=== PATIENT | female | born 1955 | race Caucasian/White ===

== ENCOUNTER → 2020-10-12 07:17 | Outpatient (CLI) | payer MEDICARE, SELFPAY ==
[2020-10-12 10:22] LABS: Absolute Lymphocyte Count 1.55 X10^3/uL (0.83-4.51); Absolute Neutrophil Count 2.3 X10^3/uL (2.0-7.7); Basophil# 0.04 X10^3/uL; Basophil% 0.9 % (0-1); Eosinophil# 0.08 X10^3/uL; Eosinophils% 1.8 % (0-5); Hemoglobin 14.1 g/dL (12.0-15.0); Lymphocyte # 1.55 X10^3/ul (0.83-4.51); Lymphocyte % 34.2 % (19-41); Mean Corp Hgb Conc 32.8 g/dL (32-36); Mean Corpuscular Hgb 30.7 pg (27.0-32.0); Mean Corpuscular Volume 93.5 fL (81-99); Monocyte# 0.59 X10^3/uL; NRBC Flagged by Analyzer 0 % (0-5); Neutrophil # 2.26 X10^3/uL (2.7-7.7); Neutrophil % 49.9 % (47-70); Platelet Count 220 K/mm3 (150-450); RBC Distribution Width CV 12.1 % (11.6-14.6); White Blood Count 4.5 K/mm3 (4.4-11.0)
[2020-10-12 10:33] LABS: Color, Urine Yellow (Yellow); Glucose, Dipstick Normal (Normal); Ketone-Dipstick Negative (Negative); Leukocyte Esterase-Dipstick 100 /ul (Negative); Nitrite-Dipstick Negative (Negative); Occult Blood-Urine 25 /ul (Negative); Protein-Dipstick Negative (Negative); Urine Bilirubin Dipstick Negative (Negative); Urine Clarity Clear (Clear); Urine Urobilinogen Normal (Normal)
[2020-10-12 10:49] LABS: ALB/GLOB Ratio 1.1 RATIO (0.9-2.4); AST(SGOT) 20 U/L (15-37); Alanine Aminotransfer ALT/SGPT 20 U/L (13-56); Albumin, Serum 3.8 g/dL (3.2-5.0); Alkaline Phosphatase 110 U/L (45-117); Anion Gap 6 (5-15); BUN 12 mg/dL (7-18); BUN/Creat Ratio 14.5 RATIO (10-20); Calcium,Total 8.6 mg/dL (8.5-10.1); Chloride 109 mmol/L (98-107); Cholesterol 193 mg/dL (200); Creatinine, Serum 0.83 mg/dL (0.55-1.02); EST Glomerular Filtration Rate 73 mL/min (>60); Est Glom Filt Rate - Afr Amer 89 mL/min (>60); Globulin 3.6 g/dL (2.2-4.2); Glucose 95 mg/dL (74-106); High Density Lipoprotein 50 mg/dL; Potassium 3.6 mmol/L (3.5-5.1); Protein, Total 7.4 g/dL (6.4-8.2); Sodium Level 140 mmol/L (136-145); Thyroid Stim Hormone (TSH) 2.15 uIU/mL (0.358-3.74); Triglycerides 89 mg/dL; Very Low Density Lipoprotein 18 mg/dL (5-40)
== END ==
PROVIDERS: PCP Family Medicine
DX: I10 Essential (primary) hypertension (principal); R31.21 Asymptomatic microscopic hematuria; R53.83 Other fatigue; Z13.89 Encounter for screening for other disorder
CPT/HCPCS: 36415; 80053; 80061; 81002; 84443; 85025

== ENCOUNTER → 2020-12-23 08:07 | Outpatient (CLI) | payer MEDICARE, SELFPAY ==
[2020-12-23 08:10] LABS: Mucous, Urine 0 SEEN /hpf (<or=2+); Red Blood Cells-Urine 0 SEEN /hpf (0-5)
[2020-12-23 12:10] LABS: Color, Urine Yellow (Yellow); Glucose, Dipstick Normal (Normal); Ketone-Dipstick Negative (Negative); Leukocyte Esterase-Dipstick 25 /ul (Negative); Nitrite-Dipstick Negative (Negative); Occult Blood-Urine 10 /ul (Negative); Protein-Dipstick Negative (Negative); Specific Gravity, Urine 1.015 (1.002-1.030); Urine Bilirubin Dipstick Negative (Negative); Urine Clarity Clear (Clear); Urine Urobilinogen Normal (Normal)
[2020-12-23 12:19] LABS: Bacteria RARE /hpf (None Seen); Squamous Epithelial Cells - UA 0-5 SEEN /hpf (5-10); White Blood Cells 0-5 SEEN /hpf (0-5)
== END ==
PROVIDERS: PCP Internal Medicine; Visit Provider Internal Medicine
DX: R31.9 Hematuria, unspecified (principal)
CPT/HCPCS: 81001

== ENCOUNTER → 2022-01-06 | Outpatient (CLI) | payer MEDICARE, SELFPAY ==
[2022-01-06 12:19] LABS: Absolute Lymphocyte Count 2.13 X10^3/uL (0.83-4.51); Absolute Neutrophil Count 2.5 X10^3/uL (2.0-7.7); Basophil# 0.05 X10^3/uL; Basophil% 0.9 % (0-1); Eosinophil# 0.14 X10^3/uL; Eosinophils% 2.6 % (0-5); Hematocrit 42.4 % (37-47); Lymphocyte # 2.13 X10^3/ul (0.83-4.51); Lymphocyte % 39.3 % (19-41); Mean Corpuscular Hgb 31.3 pg (27.0-32.0); Mean Corpuscular Volume 94.6 fL (81-99); Mean Platelet Vol. 10.7 fl (6.2-12.0); Monocyte# 0.58 X10^3/uL; Monocyte% 10.7 % (0-10); NRBC Flagged by Analyzer 0 % (0-5); Neutrophil % 46.1 % (47-70); Platelet Count 229 K/mm3 (150-450); RBC Distribution Width CV 12.3 % (11.6-14.6); RBC Distribution Width SD 42.7 fl (35.1-43.9); Red Blood Count 4.48 M/mm3 (4.2-5.4); White Blood Count 5.4 K/mm3 (4.4-11.0)
[2022-01-06 12:44] LABS: Vitamin B12 796 pg/mL (211-911); Vitamin D,25 Hydroxy 52.8 ng/mL
[2022-01-06 12:55] LABS: ALB/GLOB Ratio 0.9 RATIO (0.9-2.4); AST(SGOT) 19 U/L (15-37); Alanine Aminotransfer ALT/SGPT 25 U/L (13-56); Albumin, Serum 3.7 g/dL (3.2-5.0); Alkaline Phosphatase 101 U/L (45-117); Anion Gap 6 (5-15); BUN 15 mg/dL (7-18); BUN/Creat Ratio 19.9 RATIO (10-20); Calcium,Total 8.8 mg/dL (8.5-10.1); Chloride 108 mmol/L (98-107); Cholesterol 210 mg/dL (200); Creatinine, Serum 0.75 mg/dL (0.55-1.02); EST Glomerular Filtration Rate 82 mL/min (>60); Est Glom Filt Rate - Afr Amer 99 mL/min (>60); Glucose 89 mg/dL (74-106); High Density Lipoprotein 51 mg/dL; Potassium 3.8 mmol/L (3.5-5.1); Protein, Total 7.7 g/dL (6.4-8.2); Sodium Level 141 mmol/L (136-145); Thyroid Stim Hormone (TSH) 1.72 uIU/mL (0.358-3.74); Triglycerides 94 mg/dL; Very Low Density Lipoprotein 19 mg/dL (5-40)
== END | disposition home or self-care (01) ==
LOC: MTLAB 10:16
PROVIDERS: PCP Internal Medicine; Referring Provider Internal Medicine; Visit Provider Internal Medicine
DX: R31.9 Hematuria, unspecified (principal); R53.83 Other fatigue; E55.9 Vitamin D deficiency, unspecified; E78.5 Hyperlipidemia, unspecified
CPT/HCPCS: 36415; 80053; 80061; 82306; 82607; 84443; 85025

== ENCOUNTER → 2023-01-27 | Outpatient (CLI) | payer MEDICARE, SELFPAY ==
[2023-01-27 10:10] LABS: Absolute Lymphocyte Count 1.79 X10^3/uL (0.83-4.51); Absolute Neutrophil Count 2.2 X10^3/uL (2.0-7.7); Basophil# 0.04 X10^3/uL; Basophil% 0.8 % (0-1); Eosinophil# 0.13 X10^3/uL; Eosinophils% 2.7 % (0-5); Hematocrit 42.6 % (37-47); Hemoglobin 13.7 g/dL (12.0-15.0); Lymphocyte # 1.79 X10^3/ul (0.83-4.51); Lymphocyte % 37.4 % (19-41); Mean Corp Hgb Conc 32.2 g/dL (32-36); Mean Corpuscular Hgb 30.5 pg (27.0-32.0); Mean Corpuscular Volume 94.9 fL (81-99); Mean Platelet Vol. 10.7 fl (6.2-12.0); Monocyte# 0.62 X10^3/uL; NRBC Flagged by Analyzer 0 % (0-5); Neutrophil # 2.19 X10^3/uL (2.7-7.7); Neutrophil % 45.9 % (47-70); Platelet Count 206 K/mm3 (150-450); RBC Distribution Width CV 12.9 % (11.6-14.6); RBC Distribution Width SD 45.4 fl (35.1-43.9); Red Blood Count 4.49 M/mm3 (4.2-5.4); White Blood Count 4.8 K/mm3 (4.4-11.0)
[2023-01-27 10:37] LABS: Vitamin B12 450 pg/mL (211-911); Vitamin D,25 Hydroxy 47.6 ng/mL
[2023-01-27 10:40] LABS: AST(SGOT) 22 U/L (15-37); Alanine Aminotransfer ALT/SGPT 24 U/L (13-56); Albumin, Serum 3.6 g/dL (3.2-5.0); Alkaline Phosphatase 96 U/L (45-117); Anion Gap 8 (5-15); BUN 13 mg/dL (7-18); Calcium,Total 8.7 mg/dL (8.5-10.1); Chloride 111 mmol/L (98-107); Cholesterol 196 mg/dL (200); Creatinine, Serum 0.81 mg/dL (0.55-1.02); EST Glomerular Filtration Rate 74 mL/min (>60); Est Glom Filt Rate - Afr Amer 90 mL/min (>60); Globulin 3.6 g/dL (2.2-4.2); Glucose 107 mg/dL (74-106); High Density Lipoprotein 46 mg/dL; Potassium 4.1 mmol/L (3.5-5.1); Protein, Total 7.2 g/dL (6.4-8.2); Sodium Level 143 mmol/L (136-145); Thyroid Stim Hormone (TSH) 1.83 uIU/mL (0.358-3.74); Triglycerides 103 mg/dL; Very Low Density Lipoprotein 21 mg/dL (5-40)
== END | disposition home or self-care (01) ==
LOC: MTLAB 07:13
PROVIDERS: PCP Internal Medicine; Referring Provider Internal Medicine; Visit Provider Internal Medicine
DX: Z00.00 Encounter for general adult medical examination without abnormal findings (principal); K21.9 Gastro-esophageal reflux disease without esophagitis; E55.9 Vitamin D deficiency, unspecified; E78.5 Hyperlipidemia, unspecified
CPT/HCPCS: 36415; 80053; 80061; 82306; 82607; 84443; 85025

== ENCOUNTER → 2024-02-02 | Outpatient (CLI) | payer MEDICARE, SELFPAY ==
[2024-02-02 07:09] LABS: Absolute Lymphocyte Count 1.81 X10^3/uL (0.83-4.51); Absolute Neutrophil Count 2.8 X10^3/uL (2.0-7.7); Basophil# 0.04 X10^3/uL; Basophil% 0.8 % (0-1); Eosinophils% 3.8 % (0-5); Hematocrit 42.7 % (37-47); Hemoglobin 13.6 g/dL (12.0-15.0); Lymphocyte # 1.81 X10^3/ul (0.83-4.51); Lymphocyte % 34.3 % (19-41); Mean Corp Hgb Conc 31.9 g/dL (32-36); Mean Corpuscular Hgb 30.1 pg (27.0-32.0); Mean Corpuscular Volume 94.5 fL (81-99); Monocyte# 0.45 X10^3/uL; Monocyte% 8.5 % (0-10); NRBC Flagged by Analyzer 0 % (0-5); Neutrophil # 2.76 X10^3/uL (2.7-7.7); Neutrophil % 52.2 % (47-70); Platelet Count 220 K/mm3 (150-450); RBC Distribution Width CV 13.1 % (11.6-14.6); RBC Distribution Width SD 45.5 fl (35.1-43.9); Red Blood Count 4.52 M/mm3 (4.2-5.4); White Blood Count 5.3 K/mm3 (4.4-11.0)
[2024-02-02 07:44] LABS: AST(SGOT) 14 U/L (15-37); Alanine Aminotransfer ALT/SGPT 20 U/L (13-56); Albumin, Serum 3.7 g/dL (3.2-5.0); Alkaline Phosphatase 115 U/L (45-117); Anion Gap 6 (5-15); BUN 12 mg/dL (7-18); BUN/Creat Ratio 13.2 RATIO (10-20); Calcium,Total 8.7 mg/dL (8.5-10.1); Chloride 112 mmol/L (98-107); Cholesterol 179 mg/dL (200); Creatinine, Serum 0.91 mg/dL (0.55-1.02); EST Glomerular Filtration Rate 65 mL/min (>60); Est Glom Filt Rate - Afr Amer 79 mL/min (>60); Globulin 3.7 g/dL (2.2-4.2); Glucose 112 mg/dL (74-106); High Density Lipoprotein 55 mg/dL; Potassium 3.9 mmol/L (3.5-5.1); Protein, Total 7.4 g/dL (6.4-8.2); Sodium Level 143 mmol/L (136-145); Triglycerides 82 mg/dL; Very Low Density Lipoprotein 16 mg/dL (5-40)
== END | disposition home or self-care (01) ==
LOC: LAB 06:52
PROVIDERS: PCP Internal Medicine; Referring Provider Internal Medicine; Visit Provider Internal Medicine
DX: K21.9 Gastro-esophageal reflux disease without esophagitis (principal); M25.562 Pain in left knee; E78.5 Hyperlipidemia, unspecified; Z13.220 Encounter for screening for lipoid disorders
CPT/HCPCS: 36415; 80053; 80061; 85025

== ENCOUNTER → 2024-08-21 | Outpatient (CLI) | payer MEDICARE, SELFPAY ==
--- NOTE | 2024-08-21 15:31 | RAD_ITS ---
PROCEDURE: HAND MIN 3 VIEWS 08/21/2024 REASON FOR EXAM: PAIN IN HAND, FINGER TECHNIQUE: 3 view(s) of the right hand COMPARISON: None available FINDINGS: No fracture or dislocation. The joint spaces appear within limits. Appearance of soft tissue swelling about the 5th proximal interphalangeal joint, clinically correlate. RAD/Hand Min 3 Views IMPRESSION: No fracture or dislocation. The joint spaces appear within limits. Appearance of soft tissue swelling about the 5th proximal interphalangeal joint , clinically correlate. Reading Location: [id number]
== END | disposition home or self-care (01) ==
LOC: MTRAD 15:29
PROVIDERS: PCP Internal Medicine; Referring Provider Chiropractor; Visit Provider Chiropractor
DX: M79.644 Pain in right finger(s) (principal)
CPT/HCPCS: 73130

== ENCOUNTER → 2025-02-13 | Outpatient (CLI) | payer MEDICARE, SELFPAY ==
--- OUTSIDE RECORDS SUMMARY | 2025-02-13 07:45 | XMS RPT_ITS | CCD ---
Author Organization [facility] Care Team Providers Care Commissioning Specialist Name Role Phone Dr. Rimma Perales Primary Care Provider Dr. Rimma Perales Attending Provider Unavailable Primary Care Provider Unavailnicole Perales MD, Dr. Shanks Primary Care Provider [phone] Thomas ALMANZAR, Dr. Loomis Attending Provider Thomas ALMANZAR, Dr. Loomis Referring Provider Rimma Perales Primary Care Unavailable Rimma Perales Attending Unavailable Rimma Perales Primary Care Unavailable Vladislav Guzman Attending Unavailable Vladislav Guzman Referring Unavailable Rimma Perales Primary Care Unavailable Rimma Perales Attending Unavailable Rimma Perales Referring Unavailable Allergies Allergy Classification Reported Allergen(s) Allergy Type Date of Onset Reaction(s) Facility (4 sources) Chocolate; Translations: [chocolate flavor] Propensity to adverse reactions 2 [facility] Comment on above: Chocolate (3 sources) Penicillins Propensity to adverse reactions 2 Rash [facility] (1 source) invert sugar Drug Allergy 4 [facility] (1 source) bee venom protein (honey bee) Allergy to substance 4 Other [facility] Comment on above: high BP, tired (1 source) Penicillins Drug allergy (disorder) 5 [facility] (1 source) inverted sugar Drug allergy (disorder) 5 [facility] (1 source) bee venom protein (honey bee) Drug allergy (disorder) 5 [facility] Medications Current Medications Medication Drug Class(es) Dates Sig (Normalized) Sig (Original) Bee Pollen 500 mg tablet (1 source) Start: 01-25-2024 Bee Pollen 500 mg tablet Active mg PO January 25, 2024 12:00am krill oil 500 mg oral capsule (1 source) Start: 01-25-2024 Krill Oil 500 mg capsule Active mg PO January 25, 2024 12:00am Multivitamin preparation (2 sources) Start: 01-03-2022 take 1 tablet by mouth once daily Multivitamin Active 1 TABLET PO DAILY January 03, 2022 12:00am Multivitamin tablet (1 source) Start: 01-03-2022 Multivitamin tablet Active 1 {tbl} PO DAILY January 03, 2022 12:00am Vitamin B Complex (B Complex-Vitamin B12) tablet (3 sources) Start: 12-22-2020 Vitamin B Complex (B Complex-Vitamin B12) tablet Active 1 {tbl} PO DAILY December 22, 2020 12:00am Start: 12-22-2020 take 1 tablet by sharif once daily Vitamin B Complex (B Complex-Vitamin B12) tablet Active 1 TABLET PO DAILY December 22, 2020 12:00am Completed/Discontinued Medications Medication Drug Class(es) Dates Sig (Normalized) Sig (Original) omeprazole 20 mg delayed release oral capsule (3 sources) Proton Pump Inhibitor Start: 12-22-2020 End: 01-03-2022 take 1 capsule by mouth once daily Omeprazole 20 mg capsule,delayed release(DR/EC) Discontinued 20 mg PO DAILY December 22, 2020 12:00am January 03, 2022 2:27pm Problems Active Problems Problem Classification Problem Date Documented Date Episodic/Chronic Esophageal disorders (5 sources) Gastroesophageal reflux disease; Translations: [Gastro-esophageal reflux disease without esophagitis] Onset: 02-03-2025 12-22-2020 Chronic Genitourinary symptoms and ill-defined conditions (3 sources) Blood in urine; Translations: [Hematuria, unspecified] 12-22-2020 Episodic Malaise and fatigue (6 sources) Fatigue; Translations: [Other fatigue] Onset: 02-03-2025 Episodic Nonspecific chest pain (2 sources) Chest pain, unspecified; Translations: [Chest pain, unspecified] Onset: 02-03-2025 Episodic Nutritional deficiencies (1 source) Vitamin D deficiency, unspecified; Translations: [Vitamin D deficiency, unspecified] Onset: 02-03-2025 Chronic Other nervous system disorders (1 source) Finding of sensation of upper limb; Translations: [Paresthesia of skin] Episodic Other nervous system disorders (1 source) Paresthesia of skin; Translations: [Disturbance of skin sensation] Episodic Other nervous system disorders (2 sources) Paresthesia of upper limb; Translations: [Paresthesia of skin] 01-03-2022 Episodic Other non-traumatic joint disorders (1 source) Pain in left knee; Translations: [Left knee pain] 01-25-2024 Episodic Past or Other Problems Problem Classification Problem Date Documented Da te Episodic/Chronic Other connective tissue disease (1 source) Pain in right finger(s); Translations: [Pain in right finger(s)] Onset: 08-27-2024 Episodic Results Test Name Value Interpretation Reference Range Facility MR/Vilma 02-03-2025 MR/VELMA.[facility] [address] [place] [address] OFFICE VISIT Date of Service: 02/03/25 MR#: [id number] Acct: [id number] Name: TERELL GREEN JEB Rep #: [id number] : 1955 Provider: Dr. Rimma valera MD Age/Sex: 69/F Location: [facility] Status: Signed Intake Vital Signs 01/25/24 09:34 02/03/25 13:28 Height 5 ft 4 in 5 ft 4 in Weight: 133 lb 4 oz BMI 22.8 BP 149/89 H Blood Pressure Location Rt brachial Position Sitting Respiration 16 Pulse 72 Pulse Source Monitor Temp 98.6 F Temp Source Temporal Pulse Oximetry (%) 97 Oxygen Delivery Method room air Intake Visit Reasons: Annual/Physical Chief Complaint: Bilateral hands and arms Joy Loader Required: No Accompanied by: Self Is patient in pain?: No Allergies bee venom protein (honey bee) (bee sting) Allergy (Severe, Verified 02/03/25 13:19) Other inverted sugar Allergy (Mild, Verified 02/03/25 13:19) Hives chocolate flavor Adverse Reaction (Severe, Verified 02/03/25 13:19) Hives Penicillins Adverse Reaction (Intermediate, Verified 02/03/25 13:19) Rash Medications ???Medication ???Instructions ???Recorded ???Confirmed ???Type vitamin B complex (B 1 tab PO DAILY 12/22/20 02/03/25 H istory Complex-Vitamin B12 tablet) multivitamin 1 tab PO DAILY 01/03/22 02/03/25 H istory bee pollen 500 mg tablet mg PO 01/25/24 02/03/25 History krill oil 500 mg capsule mg PO 01/25/24 02/03/25 History Have you fallen in the past year?: No PFSH Medical History (Updated 02/03/25 @ 15:[address] Rimma Perales MD) Carpal tunnel syndrome Chest pain Left knee pain Surgical History History of appendectomy Family History Mother CVA (cerebral vascular accident) Heart disease Hypertension Myocardial infarction Social History Smoking Status: Never smoker alcohol intake: never substance use type: does not use what type of physical activity do you participate in: walking frequency: daily HPI HPI Chief Complaint: Bilateral hands and arms Details: TERELL GREEN, is a 69 F who presents to the office today for annual follow-up. 69-year-old female, who generally speaking has been pretty healthy. She states however over the last year or more, she has had some intermittent chest pain, chest pressure sensation. She had an issue when she was doing some cleaning of a window where she put a lot of extra pressure on the chest wall and then had several weeks of chest discomfort but that is not the predominant issue. She has had a sense of intermittent chest pressure, across the upper chest, however not necessarily always associated with activity but usually in the evenings. Has not awaken her from sleep. She has not had overt dyspnea on exertion. Energy level overall seemingly okay. She has some GERD in the past but again not the issue that she is describing here. She has also had bilateral hand tingling, somewhat affects the right forearm particular on the right side. Some discomfort into the neck that could be related with the hand issue. However over the last 6 to 8 months this hand numbness and tingling has gotten a lot worse, particularly the right. Its mostly less bothersome than the left. Self-admittedly does sleep on her arm/hand, with the hand either flexed or extended and wakes up with numbness and tingling but the numbness and tingling has been more constant through the daytime as of late. From a cardiac history standpoint, mother had aortic valve replacement, maternal grandmother had fluid around her heart, and maternal grandfather had bypass surgery. She has not smoked cigarettes. She does not have longstanding high blood pressure. She has had some elevation in lipids intermittently but has not been on primary prevention. Review of systems per chart. Physical exam. Vital signs on chart. PERRLA. Sclera are clear. TMs are unremarkable with normal light reflexes. Canals are unremarkable. Posterior pharynx is unremarkable. Good dentition. No cervical or supraclavicular lymph nodes enlarged or tender. No clear thyromegaly. No thyroid nodules readily palpable. Lungs are without wheeze, rhonchi, rales. No E/A changes are heard. Heart is regular. Not tachycardic. No clear murmur, rub, or gallop is identified. The abdomen is soft. Bowel sounds are present. Nontender nondistended abdomen. No clear palpable masses in the abdomen. No significant leg edema. Cranial nerve examination 2 through 12 are grossly unremarkable nonlateralizing. No obvious rashes. No obvious significant skin lesions are identified. Tinel and Phalen, borderline right. Normal deep tendon reflexes at the bicep, tricep, brachial bi (more content not included)... Normal [facility] Hand Min 3 Viewson Hand Min 3 Views [facility] Imaging Services [address] [place], [place] [id number] Hand Min 3 Views MR#: [id number] Acct: [id number] Name: TERELL GREEN JEB Rep #: [id number] : 1955 F 69 From: Maximiliano Servin MD PCP: Dr. Rimma Perales MD Status: [facility] Study: Hand Min 3 Views Date of Exam: 08/21/24 Exam# [id number] Ordering Dr: Vladislav Guzman MD PROCEDURE: HAND MIN 3 VIEWS 08/21/2024 REASON FOR EXAM: PAIN IN HAND, FINGER TECHNIQUE: 3 view(s) of the right hand COMPARISON: None available FINDINGS: No fracture or dislocation. The joint spaces appear within limits. Appearance of soft tissue swelling about the 5th proximal interphalangeal joint, clinically correlate. RAD/Hand Min 3 Views IMPRESSION: No fracture or dislocation. The joint spaces appear within limits. Appearance of soft tissue swelling about the 5th proximal interphalangeal joint, clinically correlate. Reading Location: [id number] CC: Dr. Rimma Perales MD; Dr. Vladislav Guzman MD Bill Peddler: Signed Normal [facility] 36on 03-26-2024 36 Mammogram reminder call [facility] Absolute lymphocyte countOrd ered By: Rimma Perales on 01-27-2023 Lymphocytes Auto (Unsp spec) [#/Vol] 1.79 10*3/uL 0.83-4.51 [facility] Basophil percentageOrdered B y: Rimma Perales on 01-27-2023 Basophils/100 WBC (Bld) 0.8 % 0-1 [facility] Bilirubin [Mass/Vol] 0.30 mg/dL 0.20-1.00 [facility] Comment on above: For patients on eltr ombopag therapy, use of Dimension [place] TBIL is not recommended. Chloride [Moles/Vol] 111 mmol/L 98-107 [facility] Cholesterol [Mass/Vol] 196 mg/dL <200 [facility] Comment on above: <200 mg/dL Desirable 200-240 mg/dL Borderline >240 mg/dL High Risk Eosinophils/100 WBC (Bld) 2.7 % 0-5 [facility] Glucose [Mass/Vol] 107 mg/dL 74-106 [facility] Comment on above: Fasting Glucose resu lt from 100 to 125 mg/dL suggests IMPAIRED HOMEOSTASIS per A.D.A. criteria. Neutrophils (Bld) [#/Vol] 2.2 10*3/uL 2.0-7.7 [facility] Neutrophils/100 WBC (Bld) 45.9 % 47-70 [facility] Potassium [Moles/Vol] 4.1 mmol/L 3.5-5.1 [facility] Protein [Mass/Vol] 7.2 g/dL 6.4-8.2 [facility] Sodium [Moles/Vol] 143 mmol/L 136-145 [facility] Triglyceride [Mass/Vol] 103 mg/dL <199 [facility] Comment on above: The drugs N-Acetylcy steine and Metamizole may falsely depress this assay.Serum Triglycerides Reference Interval Normal <150 mg/dL Borderline high 150 - 199 mg/dL High 200 - 499 mg/dL Very High > or = 500 mg/dL WBC (Bld) [#/Vol] 4.8 10*3/uL 4.4-11.0 [facility] Blood erythrocytes count (nu mber/volume)Ordered By: Rimma Perales on 01-27-2023 RBC (Bld) [#/Vol] 4.49 10*6/uL 4.2-5.4 [facility] Blood hemoglobin measurement (mass/volume)Ordered By: Rimma Perales on 01-27-2023 Hemoglobin (Bld) [Mass/Vol] 13.7 g/dL 12.0-15.0 [facility] Blood lymphocytes/100 leukoc ytesOrdered By: Rimma Perales on 01-27-2023 Lymphocytes/100 WBC (Bld) 37.4 % 19-41 [facility] Blood monocytes/100 leukocyt esOrdered By: Rimma Perales on 01-27-2023 Monocytes/100 WBC (Bld) 13.0 % 0-10 [facility] Blood platelet mean volumeOr dered By: Rimma Perales on 01-27-2023 Platelet mean volume (Bld) [Entitic vol] 10.7 fL 6.2-12.0 [facility] Determination of erythrocyte mean corpuscular volume (MCV)Ordered By: Rimma Perales on 01-27-2023 MCV (RBC) [Entitic vol] 94.9 fL 81-99 [facility] Hematocrit Auto (Bld) [Volum e fraction]Ordered By: Rimma Perales on 01-27-2023 Hematocrit (Bld) [Volume fraction] 42.6 % 37-47 [facility] Laboratory - Chemistry and C hemistry - challengeOrdered By: Rimma Perales on 01-27-2023 ALP [Catalytic activity/Vol] 96 U/L 45-117 [facility] ALT [Catalytic activity/Vol] 24 U/L 13-56 [facility] CO2 [Moles/Vol] 24.0 mmol/L 21.0-32.0 [facility] Cobalamin (Vitamin B12) [Mass/Vol] 450 pg/mL 211-911 [facility] Globulin (S) [Mass/Vol] 3.6 g/dL 2.2-4.2 [facility] Urea nitrogen/Creatinine [Mass ratio] 16.0 mg/mg 10-20 [facility] Laboratory - Hematology and Cell countsOrdered By: Rimma Perales on 01-27-2023 Erythrocyte distribution width (RBC) [Entitic vol] 45.4 fL 35.1-43.9 [facility] Erythrocyte distribution width (RBC) [Ratio] 12.9 % 11.6-14.6 [facility] Immature granulocytes/100 WBC (Bld) 0.200 % 0.0-0.9 [facility] Comment on above: IG% - Immature Granu locytes (promyelocytes, myelocytes and metamyelocytes) > 1% indicates that a LEFT SHIFT is Present. MCH (RBC) [Entitic mass] 30.5 pg 27.0-32.0 [facility] Nucleated RBC/100 WBC (Bld) [Ratio] 0 % 0-5 [facility] MCHC Auto (RBC) [Mass/Vol]Or dered By: Rimma Perales on 01-27-2023 MCHC (RBC) [Mass/Vol] 32.2 g/dL 32-36 [facility] No Panel InformationOrdered By: Rimma Perales on 01-27-2023 Estimated GFR (MDRD) Amer 90 mL/min >60 [facility] Comment on above: GFR Calc Estimated GFR (MDRD) Non-Af Amer 74 mL/min >60 [facility] Comment on above: Non- GFR Calc Thyroid Stimulating Hormone (TSH) 1.83 uIU/mL 0.358-3.74 [facility] Vitamin D 25-Hydroxy 47.6 ng/mL [facility] Comment on above: Vitamin D 25(OH) Sta tus Range Deficiency <20 ng/mL (50nmol/L) Insufficiency 20 - 30 ng/mL (50 - 75 nmol/L) Sufficiency 30 - 100 ng/mL (75 - 250 nmol/L) Toxicity >100 ng/mL (>250 nmol/L) Platelets bldOrdered By: Micki Perales on 01-27-2023 Platelets (Bld) [#/Vol] 206 10*3/uL 150-450 [facility] Serum or plasma albumin lucas urement (mass/volume)Ordered By: Rimma Perales on 01-27-2023 Albumin [Mass/Vol] 3.6 g/dL 3.2-5.0 [facility] Serum or plasma albumin/glob ulin mass ratioOrdered By: Rimma Perales on 01-27-2023 Albumin/Globulin [Mass ratio] 1.0 {ratio} 0.9-2.4 [facility] Serum or plasma calcium lucas urement (mass/volume)Ordered By: Rimma Perales on 01-27-2023 Calcium [Mass/Vol] 8.7 mg/dL 8.5-10.1 [facility] Serum or plasma cholesterol in HDL measurement (mass/volume)Ordered By: Rimma Perales on 01-27-2023 Cholesterol in HDL [Mass/Vol] 46 mg/dL >40 [facility] Comment on above: The drugs N-Acetylcy steine and Metamizole may falsely depress this assay. Reference Range HDL <40 mg/dL Low HDL Cholesterol HDL >or= 60 mg/dL High HDL Cholesterol Serum or plasma cholesterol in VLDL measurement (mass/volume)Ordered By: Rimma Perales on 01-27-2023 Cholesterol in VLDL [Mass/Vol] 21 mg/dL 5-40 [facility] Serum or plasma creatinine m easurement (mass/volume)Ordered By: Rimma Perales on 01-27-2023 Creatinine [Mass/Vol] 0.81 mg/dL 0.55-1.02 [facility] Comment on above: The validity of the calculated GFR & GFRAA in patients over 70 years has not been determined. Clinical correlation is essential. Serum or plasma low density lipoprotein (LDL) cholesterol measurement (mass/volume)Ordered By: Rimma Perales on 01-27-2023 Cholesterol in LDL [Mass/Vol] 129 mg/dL 0-130 [facility] Serum or plasma urea nitroge n measurement (mass/volume)Ordered By: Rimma Perales on 01-27-2023 Urea nitrogen [Mass/Vol] 13 mg/dL 7-18 [facility] Thin prep Papanicolaou smear with manual screeningOrdered By: Rimma Perales on 01-27-2023 Thin prep Papanicolaou smear with manual screening 22 U/L 15-37 [facility] Thin prep Papanicolaou smear with manual screening 8 5-15 [facility] Absolute lymphocyte counton 01-06-2022 Lymphocytes Auto (Unsp spec) [#/Vol] 2.13 10*3/uL 0.83-4.51 [facility] Work Phone: Basophil percentageon 2021 Basophils/100 WBC (Bld) 0.9 % 0-1 [facility] Work Phone: Bilirubin [Mass/Vol] 0.40 mg/dL 0.20-1.00 [facility] Work Phone: Comment on above: For patients on eltr ombopag therapy, use of Dimension [place] TBIL is not recommended. Chloride [Moles/Vol] 108 mmol/L 98-107 [facility] Work Phone: Cholesterol [Mass/Vol] 210 mg/dL <200 [facility] Work Phone: Comment on above: <200 mg/dL Desirable 200-240 mg/dL Borderline >240 mg/dL High Risk Eosinophils/100 WBC (Bld) 2.6 % 0-5 [facility] Work Phone: Glucose [Mass/Vol] 89 mg/dL 74-106 [facility] Work Phone: Neutrophils (Bld) [#/Vol] 2.5 10*3/uL 2.0-7.7 [facility] Work Phone: Neutrophils/100 WBC (Bld) 46.1 % 47-70 [facility] Work Phone: Potassium [Moles/Vol] 3.8 mmol/L 3.5-5.1 [facility] Work Phone: Protein [Mass/Vol] 7.7 g/dL 6.4-8.2 [facility] Work Phone: Sodium [Moles/Vol] 141 mmol/L 136-145 [facility] Work Phone: Triglyceride [Mass/Vol] 94 mg/dL <199 [facility] Work Phone: Comment on above: The drugs N-Acetylcy steine and Metamizole may falsely depress this assay.Serum Triglycerides Reference Interval Normal <150 mg/dL Borderline high 150 - 199 mg/dL High 200 - 499 mg/dL Very High > or = 500 mg/dL WBC (Bld) [#/Vol] 5.4 10*3/uL 4.4-11.0 [facility] Work Phone: Blood erythrocytes count (nu mber/volume)on 01-06-2022 RBC (Bld) [#/Vol] 4.48 10*6/uL 4.2-5.4 [facility] Work Phone: Blood hemoglobin measurement (mass/volume)on 01-06-2022 Hemoglobin (Bld) [Mass/Vol] 14.0 g/dL 12.0-15.0 [facility] Work Phone: Blood lymphocytes/100 leukoc yteson 01-06-2022 Lymphocytes/100 WBC (Bld) 39.3 % 19-41 [facility] Work Phone: [phone] Blood monocytes/100 leukocyt eson 01-06-2022 Monocytes/100 WBC (Bld) 10.7 % 0-10 [facility] Work Phone: Blood platelet mean volumeon 01-06-2022 Platelet mean volume (Bld) [Entitic vol] 10.7 fL 6.2-12.0 [facility] Work Phone: Determination of erythrocyte mean corpuscular volume (MCV)on 01-06-2022 MCV (RBC) [Entitic vol] 94.6 fL 81-99 [facility] Work Phone: Hematocrit Auto (Bld) [Volum e fraction]on 01-06-2022 Hematocrit (Bld) [Volume fraction] 42.4 % 37-47 [facility] Work Phone: Laboratory - Chemistry and C hemistry - challengeon 01-06-2022 ALP [Catalytic activity/Vol] 101 U/L 45-117 [facility] Work Phone: ALT [Catalytic activity/Vol] 25 U/L 13-56 [facility] Work Phone: CO2 [Moles/Vol] 27.0 mmol/L 21.0-32.0 [facility] Work Phone: Cobalamin (Vitamin B12) [Mass/Vol] 796 pg/mL 211-911 [facility] Work Phone: Globulin (S) [Mass/Vol] 4.0 g/dL 2.2-4.2 [facility] Work Phone: Urea nitrogen/Creatinine [Mass ratio] 19.9 mg/mg 10-20 [facility] Work Phone: Laboratory - Hematology and Cell countson 01-06-2022 Erythrocyte distribution width (RBC) [Entitic vol] 42.7 fL 35.1-43.9 [facility] Work Phone: Erythrocyte distribution width (RBC) [Ratio] 12.3 % 11.6-14.6 [facility] Work Phone: Immature granulocytes/100 WBC (Bld) 0.400 % 0.0-0.9 [facility] Work Phone: Comment on above: IG% - Immature Granu locytes (promyelocytes, myelocytes and metamyelocytes) > 1% indicates that a LEFT SHIFT is Present. MCH (RBC) [Entitic mass] 31.3 pg 27.0-32.0 [facility] Work Phone: Nucleated RBC/100 WBC (Bld) [Ratio] 0 % 0-5 [facility] Work Phone: MCHC Auto (RBC) [Mass/Vol]on 01-06-2022 MCHC (RBC) [Mass/Vol] 33.0 g/dL 32-36 [facility] Work Phone: No Panel Informationon 01-06 Estimated GFR (MDRD) Amer 99 mL/min >60 [facility] Work Phone: Comment on above: GFR Calc Estimated GFR (MDRD) Non-Af Amer 82 mL/min >60 [facility] Work Phone: Comment on above: Non- GFR Calc Thyroid Stimulating Hormone (TSH) 1.72 uIU/mL 0.358-3.74 [facility] Work Phone: Vitamin D 25-Hydroxy 52.8 ng/mL [facility] Work Phone: Comment on above: Vitamin D 25(OH) Sta tus Range Deficiency <20 ng/mL (50nmol/L) Insufficiency 20 - 30 ng/mL (50 - 75 nmol/L) Sufficiency 30 - 100 ng/mL (75 - 250 nmol/L) Toxicity >100 ng/mL (>250 nmol/L) Platelets bldon 01-06-2022 Platelets (Bld) [#/Vol] 229 10*3/uL 150-450 [facility] Work Phone: Serum or plasma albumin lucas urement (mass/volume)on 01-06-2022 Albumin [Mass/Vol] 3.7 g/dL 3.2-5.0 [facility] Work Phone: Serum or plasma albumin/glob ulin mass ratioon 01-06-2022 Albumin/Globulin [Mass ratio] 0.9 {ratio} 0.9-2.4 [facility] Work Phone: Serum or plasma calcium lucas urement (mass/volume)on 01-06-2022 Calcium [Mass/Vol] 8.8 mg/dL 8.5-10.1 [facility] Work Phone: Serum or plasma cholesterol in HDL measurement (mass/volume)on 01-06-2022 Cholesterol in HDL [Mass/Vol] 51 mg/dL >40 [facility] Work Phone: Comment on above: The drugs N-Acetylcy steine and Metamizole may falsely depress this assay. Reference Range HDL <40 mg/dL Low HDL Cholesterol HDL >or= 60 mg/dL High HDL Cholesterol Serum or plasma cholesterol in VLDL measurement (mass/volume)on 01-06-2022 Cholesterol in VLDL [Mass/Vol] 19 mg/dL 5-40 [facility] Work Phone: Serum or plasma creatinine m easurement (mass/volume)on 01-06-2022 Creatinine [Mass/Vol] 0.75 mg/dL 0.55-1.02 [facility] Work Phone: Comment on above: The validity of the calculated GFR & GFRAA in patients over 70 years has not been determined. Clinical correlation is essential. Serum or plasma low density lipoprotein (LDL) cholesterol measurement (mass/volume)on 01-06-2022 Cholesterol in LDL [Mass/Vol] 140 mg/dL 0-130 [facility] Work Phone: Serum or plasma urea nitroge n measurement (mass/volume)on 01-06-2022 Urea nitrogen [Mass/Vol] 15 mg/dL 7-18 [facility] Work Phone: Thin prep Papanicolaou smear with manual screeningon 01-06-2022 Thin prep Papanicolaou smear with manual screening 19 U/L 15-37 [facility] Work Phone: Thin prep Papanicolaou smear with manual screening 6 5-15 [facility] Work Phone: CBC W/DIFFon 10-08-2018 BASO ABS 0.10 K/CU MM Normal 0-0.2 [facility] Comment on above: Performed By: #### L 200.32283 #### [facility] [address] [place] [address] Basophils/100 WBC (Bld) 0.9 % Normal 0-2 M [facility] Comment on above: Performed By: #### L 200.01180 #### [facility] [address] [place] [address] EOS ABS 0.10 K/CU MM Normal 0-0.5 [facility] Comment on above: Performed By: #### L 200.70929 #### [facility] [address] [place] [address] Eosinophils/100 WBC (Bld) 2.3 % Normal 0-5 [facility] Comment on above: Performed By: #### L 200.34939 #### [facility] [address] [place] [address] Erythrocyte distribution width (RBC) [Ratio] 12.6 % Normal 11-14.5 [facility] Comment on above: Performed By: #### L 200.92488 #### [facility] [address] [place] [address] Hematocrit (Bld) [Volume fraction] 44.0 % Normal 35.0-47.0 [facility] Comment on above: Performed By: #### L 200.92664 #### [facility] [address] [place] [address] Hemoglobin (Bld) [Mass/Vol] 14.1 g/dL Normal 11.5-15.5 [facility] Comment on above: Performed By: #### L 200.42415 #### [facility] [address] [place] [address] IMMATR GRAN ABS 0.00 K/CU MM Normal Less than 2 [facility] Comment on above: Performed By: #### L 200.35467 #### [facility] [address] [place] [address] IMMATURE GRAN % 0.2 % Normal Less than 2 [facility] Comment on above: Performed By: #### L 200.04227 #### [facility] [address] [place] [address] Lymphocytes (Bld) [#/Vol] 2.00 K/CU MM Normal 0.9-4.4 [facility] Comment on above: Performed By: #### L 200.12457 #### [facility] [address] [place] [address] Lymphocytes/100 WBC (Bld) 35.3 % Normal 20-40 [facility] Comment on above: Performed By: #### L 200.30169 #### [facility] [address] [place] [address] MCHC (RBC) [Mass/Vol] 32.0 g/dL Normal 32.0-36.0 [facility] Comment on above: Performed By: #### L 200.98154 #### [facility] [address] [place] [address] MCV (RBC) [Entitic vol] 93.8 fL Normal 80.0-99.0 [facility] Comment on above: Performed By: #### L 200.79920 #### [facility] [address] [place] [address] MONO ABS 0.50 K/CU MM Normal 0.1-1.1 [facility] Comment on above: Performed By: #### L 200.58009 #### [facility] [address] [place] [address] Monocytes/100 WBC (Bld) 8.0 % Normal 2-10 M [facility] Comment on above: Performed By: #### L 200.92699 #### [facility] [address] [place] [address] NEUTROPHIL ABS 3.10 K/CU MM Normal 2.0-8.3 [facility] Comment on above: Performed By: #### L 200.67568 #### [facility] [address] [place] [address] Neutrophils/100 WBC (Bld) 53.3 % Normal 45-75 [facility] Comment on above: Performed By: #### L 200.48197 #### [facility] [address] [place] [address] Nucleated RBC/100 WBC (Bld) [Ratio] 0.0 % Normal Less than 1 [facility] Comment on above: Performed By: #### L 200.43374 #### [facility] [address] [place] [address] 28589 Platelet mean volume (Bld) [Entitic vol] 10.5 fL Normal 9.4-12.4 [facility] Comment on above: Performed By: #### L 200.16718 #### [facility] [address] [place] [address]809 Platelets (Bld) [#/Vol] 213 K/CU MM Normal 150-450 [facility] Comment on above: Performed By: #### L 200.06207 #### [facility] [address] [place] [address] 70405 RBC (Bld) [#/Vol] 4.69 M/CU MM Normal 3.90-5.30 [facility] Comment on above: Performed By: #### L 200.87472 #### [facility] [address] [place] [address] 13003 WBC (Bld) [#/Vol] 5.7 K/CUMM Normal 4.5-11.0 [facility] Comment on above: Performed By: #### L 200.53128 #### [facility] [address] [place] [address] CMPon 10-08-2018 Albumin [Mass/Vol] 4.0 g/dL Normal 3.2-5.0 [facility] Comment on above: Performed By: #### L 500.49105, L500.74056, L500.35350 #### [facility] [address] [place] [address] Albumin/Globulin [Mass ratio] 1.2 {ratio} Normal 0.8-2.0 [facility] Comment on above: Performed By: #### L 500.74646, L500.40017, L500.07169 #### [facility] [address] [place] [address] ALK PHOS 108 U/L Normal 45-117 [facility] Comment on above: Performed By: #### L 500.54358, L500.42988, L500.32046 #### [facility] [address] [place] [address] ALT [Catalytic activity/Vol] 24 U/L Normal 13-61 [facility] Comment on above: Result Comment: RESU LTS MAY BE FALSELY DEPRESSED AFTER THE ADMINISTRATION OF SULFASALAZINE AND/OR SULFAPYRIDINE. Performed By: #### L 500.82173, L500.42987, L500.91847 #### [facility] [address] [place] [address] Anion gap [Moles/Vol] 7 mmol/L Normal 5-16 [facility] Comment on above: Performed By: #### L 500.11942, L500.49159, L500.84322 #### [facility] [address] [place], [place] [address] BILI TOTAL 0.5 MG/DL Normal 0.2-1.0 [facility] Comment on above: Performed By: #### L 500.59364, L500.67524, L500.40414 #### [facility] [address] [place] [address] Calcium [Mass/Vol] 8.5 mg/dL Normal 8.5-10.1 [facility] Comment on above: Performed By: #### L 500.02552, L500.03687, L500.00814 #### [facility] [address] [place] [address] 18705 Chloride [Moles/Vol] 109 mmol/L High 98-107 [facility] Comment on above: Performed By: #### L 500.46254, L500.92752, L500.44485 #### [facility] [address] [place] [address] 67593 CO2 [Moles/Vol] 25 mmol/L Normal 21-32 [facility] Comment on above: Performed By: #### L 500.29410, L500.84396, L500.28730 #### [facility] [address] [place] [address] Creatinine [Mass/Vol] 0.788 mg/dL Normal 0.510-0.950 [facility] Comment on above: Result Comment: Linette ents receiving either N-Acetylcysteine (NAC) or Metamizole prior to venipuncture, may have falsely depressed results. Performed By: #### L 500.71034, L500.82740, L500.75940 #### [facility] [address] [place] [address] 29203 Globulin (S) [Mass/Vol] 3.4 g/dL Normal 2.2-4.2 M [facility] Comment on above: Performed By: #### L 500.25944, L500.19237, L500.13479 #### [facility] [address] [place] [address] 52704 Glucose [Mass/Vol] 96 mg/dL Normal 70-100 [facility] Comment on above: Result Comment: 70-1 00- Normal Fasting; 100-125 Impaired Fasting; greater than 126 on more than one result- Diabetes. ADA guidelines. Results may be falsely elevated after the administration of Sulfapyridine. Results may be falsely depressed after the administration of Sulfasalazine. Performed By: #### L 500.69901, L500.88316, L500.79954 #### [facility] [address] [place] [address]28 Potassium [Moles/Vol] 4.0 mmol/L Normal 3.5-5.1 [facility] Comment on above: Performed By: #### L 500.09041, L500.89162, L500.22177 #### [facility] [address] [place] [address] 88438 Protein [Mass/Vol] 7.4 g/dL Normal 6.0-8.5 [facility] Comment on above: Performed By: #### L 500.64222, L500.99923, L500.62115 #### [facility] [address] [place] [address] 75882 SGOT (AST) 18 U/L Normal 8-34 [facility] Comment on above: Result Comment: RESU LTS MAY BE FALSELY DEPRESSED AFTER THE ADMINISTRATION OF SULFASALAZINE AND/OR SULFAPYRIDINE. Performed By: #### L 500.59937, L500.28013, L500.82045 #### [facility] [address] [place] [address] 27673 Sodium [Moles/Vol] 141 mmol/L Normal 136-145 [facility] Comment on above: Performed By: #### L 500.89086, L500.38148, L500.02254 #### [facility] [address] [place] [address] 76548 Urea nitrogen [Mass/Vol] 8 mg/dL Normal 7-26 [facility] Comment on above: Performed By: #### L 500.06775, L500.90388, L500.89835 #### [facility] [address] [place] [address] 81067 Urea nitrogen/Creatinine [Mass ratio] 10 mg/mg Low 15-24 [facility] Comment on above: Performed By: #### L 500.43451, L500.22344, L500.24101 #### [facility] [address] [place] [address] GFR ESTon 10-08-2018 IF AMER Greater than 60 Normal [facility] Comment on above: Performed By: #### L 500.44277, L500.85076, L500.75205 #### [facility] [address] [place] [address] IF non-AFR AMER Greater than 60 Normal [facility] Comment on above: Performed By: #### L 500.62645, L500.90762, L500.99089 #### [facility] [address] [place], [place] [address] LIPIDon 10-08-2018 Cholesterol [Mass/Vol] 214 mg/dL High 0-199 [facility] Comment on above: Performed By: #### L 500.00512, L500.24679, L500.23476 #### [facility] [address] [place], [place] [address] Cholesterol in HDL [Mass/Vol] 54 mg/dL Normal GREATER [place] 40 [facility] Comment on above: Result Comment: Linette ents receiving Metamizole prior to venipuncture, may have falsely depressed results. Performed By: #### L 500.84077, L500.61421, L500.98507 #### [facility] [address] [place] [address]12 Cholesterol in LDL [Mass/Vol] 148 mg/dL High 0-129 [facility] Comment on above: Result Comment: ___C HOLESTEROL/HDL RATIO RISK___ CHD RISK = Total CHOL LDL HDL (CHOL/HDL) Recommended <200 <130 >40 <3.4 Borderline 200-239 130-159 3.4-4.99 High >240 >160 >5.0 Performed By: #### L 500.30349, L500.26266, L500.41792 #### [facility] [place] [address] Triglyceride [Mass/Vol] 61 mg/dL Normal 30-149 M [facility] Comment on above: Result Comment: Linette ents receiving either N-Acetylcysteine (NAC) or Metamizole prior to venipuncture, may have falsely depressed results. Performed By: #### L 500.45956, L500.70965, L500.86870 #### [facility] [place] [address] UA COMPLETEon 10-08-2018 UA LK ESTERASE 25 Normal NEGATIVE [facility] Comment on above: Performed By: #### L 600.86348 #### [facility] [address] [place] [address] Color (U) Straw Normal [facility] Comment on above: Performed By: #### L 600.62418 #### [facility] [address] [place], [place] [address] Glucose (U) [Mass/Vol] Negative Normal NORMAL [facility] Comment on above: Performed By: #### L 600.40041 #### [facility] [address] [place] [address] Mucus Ql (Urine sed) TRACE Normal NEGATIVE [facility] Comment on above: Performed By: #### L 600.65106 #### [facility] [address] [place] [address] SQUAMOUS EPIS 4 EPI/HPF Normal 0-5 [facility] Comment on above: Performed By: #### L 600.49697 #### [facility] [address] [place] [address] UA APPEARANCE Clear Normal CLEAR [facility] Comment on above: Performed By: #### L 600.87778 #### [facility] [address] [place], [place] [address] UA BACTERIA NONE Normal NONE [facility] Comment on above: Performed By: #### L 600.64754 #### [facility] [address] [place], [place] [address] UA BILIRUBIN Negative Normal NEGATIVE [facility] Comment on above: Performed By: #### L 600.68321 #### [facility] [address] [place], [place] [address] UA BLOOD MOD Normal NEGATIVE [facility] Comment on above: Performed By: #### L 600.04533 #### [facility] [address] [place], [place] [address] UA KETONE Negative Normal NEGATIVE [facility] Comment on above: Performed By: #### L 600.99879 #### [facility] [address] [place] [address] UA NITRITE Negative Normal NEGATIVE [facility] Comment on above: Performed By: #### L 600.77967 #### [facility] [address] [place] [address] UA PH 7.0 Normal 5-6 [facility] Comment on above: Performed By: #### L 600.55060 #### [facility] [address] [place] [address] UA PROTEIN Negative Normal NEGATIVE [facility] Comment on above: Performed By: #### L 600.77650 #### [facility] [address] [place] [address]52[address] UA RBC 7 RBC/HPF High 0-3 [facility] Comment on above: Performed By: #### L 600.17970 #### [facility] [address] [place] [address]234 UA SPEC GRAV 1.009 Normal 1.005-1.030 [facility] Comment on above: Performed By: #### L 600.33219 #### [facility] [place] [address] UA UROBILINOGEN Negative Normal NORMAL [facility] Comment on above: Performed By: #### L 600.77898 #### [facility] [place] [address] UA WBC 2 WBC/HPF Normal 0-5 [facility] Comment on above: Performed By: #### L 600.11599 #### [facility] [place] [address] Vital Signs Date Time Vital Sign Value Performing Clinician Aiyana liu 01-12-2023 09:25-0400 Body height 162.[address] Rimma Perales Work Phone: [facility] 01-12-2023 09:25-0400 Body mass index (BMI) [Ratio] 25 kg/m2 Dr. Rimma Perales Work Phone: [facility] 01-12-2023 09:25-0400 Body temperature 97.6 [degF] Dr. Rimma Perales Work Phone: [facility] 01-12-2023 09:25-0400 Body weight 66.[address] Rimma Perales Work Phone: [facility] 01-12-2023 09:25-0400 Diastolic blood pressure 81 mm[Hg] Dr. Rimma Perales Work Phone: [facility] 01-12-2023 09:25-0400 Heart rate 81 /min Dr. Rimma Perales Work Phone: [facility] 01-12-2023 09:25-0400 Respiratory rate 16 /min Dr. Rimma Perales Work Phone: [facility] 01-12-2023 09:25-0400 SaO2% (BldA) [Mass fraction] 97 % Dr. Rimma Perales Work Phone: [facility] 01-12-2023 09:25-0400 Systolic blood pressure 155 mm[Hg] Dr. Rimma Perales Work Phone: [facility] 01-03-2022 14:25-0400 Body temperature 98.3 [degF] Dr. Rimma Perales Work Phone: [facility] Work Phone: 01-03-2022 14:25-0400 Body weight 65.[address] Rimma Perales Work Phone: [facility] Work Phone: 01-03-2022 14:25-0400 Diastolic blood pressure 94 mm[Hg] Dr. Rimma Perales Work Phone: [facility] Work Phone: 01-03-2022 14:25-0400 Heart rate 95 /min Dr. Rimma Perales Work Phone: [facility] Work Phone: 01-03-2022 14:25-0400 Respiratory rate 16 /min Dr. Rimma Perales Work Phone: [facility] Work Phone: 01-03-2022 14:25-0400 SaO2% (BldA) [Mass fraction] 96 % Dr. Rimma Perales Work Phone: [facility] Work Phone: 01-03-2022 14:25-0400 Systolic blood pressure 152 mm[Hg] Dr. Rimma Perales Work Phone: [facility] Work Phone: Encounters Encounter Date Encounter Type Care Provider Facility Start: 02-[facility] Start: 02-03-2025 End: 02-03-2025 ambulatory [facility] Facility:[facility] Start: 08-21-2024 End: 08-21-[address] Rimma Perales MD Work Phone: [facility] Work Phone: Start: 08-21-2024 End: 08-21-[address] Vladislav Guzman MD -Rad[facility] Work Phone: Start: 08-21-2024 End: 08-21-2024 ambulatory Rimma Perales Facility:[facility] Start: 03-26-2024 End: 03-26-2024 Telephone encounter Kapil Montelongo Clinical Communication Comment on above: Other (Mammogram rem moisés call) Start: 01-27-2023 End: 01-27-[address] Rimma Perales Work Phone: [facility] Work Phone: Start: 01-27-2023 End: 01-27-[address] Rimma Perales Work Phone: [facility] Work Phone: Start: 01-12-2023 End: 01-12-2023 Encounter for general adult medical examination without abnormal findings Dr. Rimma Perales Work Phone: [facility] Start: 01-12-2023 End: 01-12-[address] Rimma Perales Work Phone: [facility] Work Phone: Start: 01-06-2022 End: 01-06-[address] Rimma Perales Work Phone: [facility] Work Phone: Start: 01-06-2022 End: 01-06-[address] Rimma Perales Work Phone: [facility] Start: 01-03-[address] Rimma Perales Work Phone: [facility] Start: 01-03-2022 End: 01-03-2022 Encounter for general adult medical examination without abnormal findings Dr. Rimma Perales Work Phone: [facility] [place] Start: 01-03-2022 End: 01-03-[address] Rimma Perales Work Phone: [facility] [place] Procedures Date Procedure Procedure Detail Performing Clinician Start: 08-21-2024 Plain x-ray of hand Dr. Rimma Perales MD Work Phone: Payers Date Payer Category Payer Medicare [id number] 2024 Self-pay [id number] Private Health Insurance [facility] [id number] Unknown [id number] Unknown [id number] Unknown [id number] Unknown [id number] Social History Date Type Detail Facility Tobacco smoking status NHIS Unknown if ever smoked [facility] Work Phone: Start: 1955 Sex Assigned At Female [facility] Tobacco smoking status WAIS Tobacco smoking consumption unknown [facility] Start: 1955 Sex assigned at Not on file [facility] Start: 11-01-2021 Sex Female (finding) [facility] Gender identity Not on file [facility] Start: 01-25-2024 Tobacco smoking status NHIS Never smoked tobacco (finding) [facility] Radiology Diagnostic study note 08-22-2024 Note Date & Type Note Facility 08-22-2024 Radiology Diagnostic study note [facility] Imaging Services [address] [place] [address] Hand Min 3 Views MR#: [id number] Acct: [id number] Name: TERELL GREEN JEB Rep #: [id number] : 1955 F 69 From: Cuate Servin MD PCP: Dr. Rimma Perales MD Status: REG CLI Study:Hand Min 3 Views Date of Exam: Exam# [id number] Ordering Dr: Gerardo Guzman MD PROCEDURE: HAND MIN 3 VIEWS 08/21/2024 REASON FOR EXAM: PAIN IN HAND, FINGER TECHNIQUE: 3 view(s) of the right hand COMPARISON: None available FINDINGS: No fracture or dislocation. The joint spaces appear within limits. Appearance of soft tissue swelling about the 5th proximal interphalangeal joint, clinically correlate. RAD/Hand Min 3 Views IMPRESSION: No fracture or dislocation. The joint spaces appear within limits. Appearance of soft tissue swelling about the 5th proximal interphalangeal joint,clinically correlate. Reading Location: [id number] CC: Dr. Rimma Perales MD; Dr. Vladislav Guzman MD ~ Bill Peddler: Signed [facility] Telephone encounter Note 03-26-2024 Telephone Encounter - Kapil Vasquez LPN - 03/26/2024 9:48 AM EST Note Date & Type Note Facility 03-26-2024 Telephone encounter Note Form atting of this note might be different from the original. Mammogram reminder call [facility] 03-26-2024 Telephone Encounter - Kapil Vasquez LPN - 03/26/2024 9:48 AM EST Note Date & Type Note Facility 03-26-2024 Miscellaneous Notes Formattin g of this note might be different from the original. Mammogram reminder call LVM documented in this encounter [facility] Evaluation note Note Date & Type Note Facility Evaluation note Diagnosis Onset Date Encounter for wellness examination in adult acute Fatigue acute Tingling of upper extremity acute [facility] Work Phone: Evaluation note Note Date & Type Note Facility Evaluation note Diagnosis Onset Date Encounter for wellness examination in adult acute Fatigue acute Chronic GERD chronic [facility] Work Phone: Evaluation note Note Date & Type Note Facility Evaluation note No assessment information availa ble [facility] Work Phone: Reason for referral (narrative) Note Date & Type Note Facility Reason for referral (narrative) No reason for referral information available [facility] Work Phone: Summary Purpose Family History No Family History Records Found Relationship Condition Age at Onset Recorded Date/T ole mother Cerebrovascular accident (CVA) Unknown Cardiac disease Unknown Hypertension Unknown Myocardial infarction Unknown Advance Directives No Advanced Directives Records FoundNo Advanced Directives Records FoundNo Advanced Directives Records Found Chief Complaint and Reason for Visit Chief Complaint 1 Y FU, Aware of Loc ation Change EORDER Reason for Visit Encounter for wellne ss examination in adult Fatigue Tingling of upper extremity Chief Complaint Annual EORDER Reason for Visit Encounter for wellne ss examination in adult Fatigue Chronic GERD Chief Complaint Admit Date PAIN IN RIGHT HAND August 21, 2024 3:28p m Additional Source Comments INFORMATION SOURCE (unrecogn ized section and content) DATE CREATED AUTHOR 10/13/2018 [facility] [place] DATE CREATED AUTHOR AUTHOR'S ORGANIZ ATION 03/28/2024 [facility] DATE CREATED AUTHOR AUTHOR'S ORGANIZ ATION 02/07/2025 [facility] Goals (unrecognized section and content) Goals may be documented in a n alternate sectionGoals may be documented in an alternate sectionGoals may be documented in an alternate section Care Teams (unrecognized sec tion and content) Team Status: Active Member Role Status Dates Dr. Quan Esposito DO Family Provider Active Dr. Rimma Perales MD Primary Care Provider Active Team Status: Inactive Member Role Status Dates Dr. Rimma Perales MD Primary Care Provider, Attendi ng Provider Active Team Status: Inactive Member Role Status Dates Dr. Rimma Perales MD Primary Care Pro vider, Attending Provider, Referring Provider Active Team Status: Inactive Member Role Status Dates Dr. Rimma Perales MD Primary Care Provider Active Start: August 21, 2024 End: August 21, 2024 Dr. Vladislav Guzman MD Attending Provider Active Sta rt: August 21, 2024 End: August 21, 2024 Dr. Vladislav Guzman MD Referring Provider Active Sta rt: August 21, 2024 End: August 21, 2024 Reason for Visit (unrecogniz ed section and content) Reason Onset Date Comments Other 03/26/2024 Mammogram remind er call FOR RECORDS PERTAINING TO PATIENTS WHO ARE OR HAVE BEEN ENROLLED IN A CHEMICAL DEPENDENCY/SUBSTANCEABUSE PROGRAM, SOME INFORMATION MAY BE OMITTED. This clinical summary was aggregated from multiple sources. Caution should be exercised in using it in the provision of clinical care. This summary normalizes information from multiple sources, and as a consequence, information in this document may materially change the coding, format and clinical context of patient data. In addition, data may be omitted in some cases. CLINICAL DECISIONS SHOULD BE BASED ON THE PRIMARY CLINICAL RECORDS. [employer] provides no warranty or guarantee of the accuracy or completeness of information in this document.
[2025-02-13 08:35] LABS: Hematocrit 41.5 % (37-47); Hemoglobin 13.7 g/dL (12.0-15.0); Immature Granulocytes Count 0.010 X10^3/uL (0.0-0.0); Mean Corp Hgb Conc 33.0 g/dL (32-36); Mean Corpuscular Volume 93.0 fL (81-99); Mean Platelet Vol. 10.5 fl (6.2-12.0); NRBC Flagged by Analyzer 0 % (0-5); Platelet Count 233 K/mm3 (150-450); RBC Distribution Width CV 12.8 % (11.6-14.6); RBC Distribution Width SD 43.7 fl (35.1-43.9); Red Blood Count 4.46 M/mm3 (4.2-5.4); White Blood Count 5.4 K/mm3 (4.4-11.0)
[2025-02-13 09:26] LABS: AST(SGOT) 22 U/L (<=31); Alanine Aminotransfer ALT/SGPT 15 U/L (<=34); Albumin, Serum 4.3 g/dL (3.4-4.8); Alkaline Phosphatase 101 U/L (35-104); Anion Gap 10 (5-15); BUN 22 mg/dL (4-19); BUN/Creat Ratio 23.6 RATIO (10-20); Calcium,Total 9.2 mg/dL (7.6-11.0); Carbon Dioxide 26.6 mmol/L (21.0-32.0); Chloride 105 mmol/L (98-108); Cholesterol 186 mg/dL (<=200); Globulin 3.0 g/dL (2.2-4.2); Glucose 103 mg/dL (70-99); Low Density Lipoprotein Calc. 118 mg/dL; Potassium 4.0 mmol/L (3.3-5.1); Triglycerides 69 mg/dL; Very Low Density Lipoprotein 14 mg/dL (5-40); Vitamin B12 974 pg/mL (180-914); Vitamin D,25 Hydroxy 37.0 ng/mL (30-100); cholesterol:hdl ratio screen 3.39
== END | disposition home or self-care (01) ==
LOC: LAB 07:28
PROVIDERS: PCP Internal Medicine; Referring Provider Internal Medicine; Visit Provider Internal Medicine
DX: K21.9 Gastro-esophageal reflux disease without esophagitis (principal); R53.83 Other fatigue; R07.9 Chest pain, unspecified; E53.8 Deficiency of other specified B group vitamins; E55.9 Vitamin D deficiency, unspecified; Z13.220 Encounter for screening for lipoid disorders
CPT/HCPCS: 36415; 80053; 80061; 82306; 82607; 84443; 85025

== ENCOUNTER → 2025-03-31 | Outpatient (CLI) | payer MEDICARE, SELFPAY ==
--- OUTSIDE RECORDS SUMMARY | 2025-03-31 06:37 | XMS RPT_ITS | CCD ---
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 Rimma Perales Primary Care Provider Dr. Rimma Perales Attending Provider Unavailable Primary Care Provider Unavailnicole Perales MD, Dr. Shanks Primary Care Provider Thomas ALMANZAR, Dr. Loomis Attending Provider Thomas [...] [chocolate flavor] Propensity to adverse reactions 2 [facility] Comment on above: Chocolate (3 sources) Penicillins Propensity to adverse reactions 2 Rash [facility] (1 source) invert sugar Drug Allergy 4 [facility] (1 source) bee venom protein (honey bee) Allergy to substance 4 Other [facility] Comment on above: high BP, tired (1 source) Penicillins Drug allergy (disorder) 5 [facility] (1 source) inverted sugar Drug allergy (disorder) 5 [facility] (1 source) bee venom protein (honey bee) Drug allergy (disorder) 5 [facility] Medications Current Medications Medication Drug Class(es) [...] Interpretation Reference Range Facility MR/Vilma 02-03-2025 MR/VELMA.CARTER [facility] [address] [place] [address] OFFICE VISIT Date of Service: 02/03/25 MR#: [id number] Acct: [id number] Name: TERELL GREEN JEB Rep #: [id number] : 1955 Provider: Dr. Rimma valera MD Age/Sex: 69/F Location: 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 Normal [facility] Hand Min 3 Viewson Hand Min 3 Views [facility] [address] [place], [place] [id number] Hand Min 3 Views MR#: [id number] Acct: [id number] Name: TERELL GREEN JEB Rep #: [id number] : 1955 F 69 From: Maximiliano Servin MD PCP: Dr. Rimma Perales MD Status: [facility] Study: Hand Min 3 Views Date of Exam: 08/21/24 Exam# [id number] Ordering Dr: Vladislav Guzman MD PROCEDURE: HAND [...] proximal interphalangeal joint, clinically correlate. Reading Location: [id number] CC: Dr. Rimma Perales MD; Dr. Vladislav Guzman MD Director Of Oncology: Signed Normal [facility] 36on 03-26-2024 36 Mammogram reminder call [facility] Absolute lymphocyte countOrd ered By: Rimma Perales on 01-27-2023 Lymphocytes Auto (Unsp spec) [#/Vol] 1.79 10*3/uL 0.83-4.51 [facility] Basophil percentageOrdered B y: Rimma Perales on 01-27-2023 Basophils/100 WBC (Bld) 0.8 % 0-1 [facility] Bilirubin [Mass/Vol] 0.30 mg/dL 0.20-1.[address] [facility] Comment on above: For patients on eltr ombopag therapy, use of Dimension Mathias TBIL is not recommended. Chloride [Moles/Vol] 111 mmol/L 98-[address] [facility] Cholesterol [Mass/Vol] 196 mg/dL <200 [facility] Comment on above: <200 mg/dL Desirable 200-240 mg/dL Borderline >240 mg/dL High Risk Eosinophils/100 WBC (Bld) 2.7 % 0-5 [facility] Glucose [Mass/Vol] 107 mg/dL 74-106 [facility] Comment on above: Fasting Glucose resu lt from 100 to 125 mg/dL suggests IMPAIRED HOMEOSTASIS per A.D.A. criteria. Neutrophils (Bld) [#/Vol] 2.2 10*3/uL 2.0-7.7 [facility] Neutrophils/100 WBC (Bld) 45.9 % 47-70 [facility] Potassium [Moles/Vol] 4.1 mmol/L 3.5-5.1 [facility] Protein [Mass/Vol] 7.2 g/dL 6.4-8.2 [facility] Sodium [Moles/Vol] 143 mmol/L 136-145 [facility] Triglyceride [Mass/Vol] 103 mg/dL <199 [facility] Comment on above: The drugs N-Acetylcy steine and Metamizole may falsely depress this assay.Serum Triglycerides Reference Interval Normal <150 mg/dL Borderline high 150 - 199 mg/dL High 200 - 499 mg/dL Very High > or = 500 mg/dL WBC (Bld) [#/Vol] 4.8 10*3/uL 4.4-11.0 [facility] Blood erythrocytes count (nu mber/volume)Ordered By: Rimma Perales on 01-27-2023 RBC (Bld) [#/Vol] 4.49 10*6/uL 4.2-5.4 [facility] Blood hemoglobin measurement (mass/volume)Ordered By: Rimma Perales on 01-27-2023 Hemoglobin (Bld) [Mass/Vol] 13.7 g/dL 12.0-15.0 [facility] Blood lymphocytes/100 leukoc ytesOrdered By: Rimma Perales on 01-27-2023 Lymphocytes/100 WBC (Bld) 37.4 % 19-41 [facility] Blood monocytes/100 leukocyt esOrdered By: Rimma Perales on 01-27-2023 Monocytes/100 WBC (Bld) 13.0 % 0-10 [facility] Blood platelet mean volumeOr dered By: Rimma Perales on 01-27-2023 Platelet mean volume (Bld) [Entitic vol] 10.7 fL 6.2-12.0 [facility] Determination of erythrocyte mean corpuscular volume (MCV)Ordered By: Rimma Perales on 01-27-2023 MCV (RBC) [Entitic vol] 94.9 fL 81-99 [facility] Hematocrit Auto (Bld) [Volum e fraction]Ordered By: Rimma Perales on 01-27-2023 Hematocrit (Bld) [Volume fraction] 42.6 % 37-47 [facility] Laboratory - Chemistry and C hemistry - challengeOrdered By: Rimma Perales on 01-27-2023 ALP [Catalytic activity/Vol] 96 U/L 45-117 [facility] ALT [Catalytic activity/Vol] 24 U/L 13-56 [facility] CO2 [Moles/Vol] 24.0 mmol/L 21.0-32.0 [facility] Cobalamin (Vitamin B12) [Mass/Vol] 450 pg/mL 211-911 [facility] Globulin (S) [Mass/Vol] 3.6 g/dL 2.2-4.2 [facility] Urea nitrogen/Creatinine [Mass ratio] 16.0 mg/mg 10-20 [facility] Laboratory - Hematology and Cell countsOrdered By: Rimma Perales on 01-27-2023 Erythrocyte distribution width (RBC) [Entitic vol] 45.4 fL 35.1-43.9 [facility] Erythrocyte distribution width (RBC) [Ratio] 12.9 % 11.6-14.6 [facility] Immature granulocytes/100 WBC (Bld) 0.200 % 0.0-0.9 [facility] Comment on above: IG% - Immature Granu locytes (promyelocytes, myelocytes and metamyelocytes) > 1% indicates that a LEFT SHIFT is Present. MCH (RBC) [Entitic mass] 30.5 pg 27.0-32.0 [facility] Nucleated RBC/100 WBC (Bld) [Ratio] 0 % 0-5 [facility] MCHC Auto (RBC) [Mass/Vol]Or dered By: Rimma Perales on 01-27-2023 MCHC (RBC) [Mass/Vol] 32.2 g/dL 32-36 [facility] No Panel InformationOrdered By: Rimma Perales on 01-27-2023 Estimated GFR (MDRD) Amer 90 mL/min >60 [facility] Comment on above: GFR Calc Estimated GFR (MDRD) Non-Af Amer 74 mL/min >60 [facility] Comment on above: Non- GFR Calc Thyroid Stimulating Hormone (TSH) 1.83 uIU/mL 0.358-3.74 [facility] Vitamin D 25-Hydroxy 47.6 ng/mL [facility] Comment on above: Vitamin D 25(OH) Sta tus Range Deficiency <20 ng/mL (50nmol/L) Insufficiency 20 - 30 ng/mL (50 - 75 nmol/L) Sufficiency 30 - 100 ng/mL (75 - 250 nmol/L) Toxicity >100 ng/mL (>250 nmol/L) Platelets bldOrdered By: Micki Perales on 01-27-2023 Platelets (Bld) [#/Vol] 206 10*3/uL 150-450 [facility] Serum or plasma albumin lucas urement (mass/volume)Ordered By: Rimma Perales on 01-27-2023 Albumin [Mass/Vol] 3.6 g/dL 3.2-5.0 [facility] Serum or plasma albumin/glob ulin mass ratioOrdered By: Rimma Perales on 01-27-2023 Albumin/Globulin [Mass ratio] 1.0 {ratio} 0.9-2.4 [facility] Serum or plasma calcium lucas urement (mass/volume)Ordered By: Rimma Perales on 01-27-2023 Calcium [Mass/Vol] 8.7 mg/dL 8.5-10.1 [facility] Serum or plasma cholesterol in HDL measurement (mass/volume)Ordered By: Rimma Perales on 01-27-2023 Cholesterol in HDL [Mass/Vol] 46 mg/dL >40 [facility] Comment on above: The drugs N-Acetylcy steine and Metamizole may falsely depress this assay. Reference Range HDL <40 mg/dL Low HDL Cholesterol HDL >or= 60 mg/dL High HDL Cholesterol Serum or plasma cholesterol in VLDL measurement (mass/volume)Ordered By: Rimma Perales on 01-27-2023 Cholesterol in VLDL [Mass/Vol] 21 mg/dL 5-40 [facility] Serum or plasma creatinine m easurement (mass/volume)Ordered By: Rimma Perales on 01-27-2023 Creatinine [Mass/Vol] 0.81 mg/dL 0.55-1.02 [facility] Comment on above: The validity of the calculated GFR & GFRAA in patients over 70 years has not been determined. Clinical correlation is essential. Serum or plasma low density lipoprotein (LDL) cholesterol measurement (mass/volume)Ordered By: Rimma Perales on 01-27-2023 Cholesterol in LDL [Mass/Vol] 129 mg/dL 0-130 [facility] Serum or plasma urea nitroge n measurement (mass/volume)Ordered By: Rimma Perales on 01-27-2023 Urea nitrogen [Mass/Vol] 13 mg/dL 7-18 [facility] Thin prep Papanicolaou smear with manual screeningOrdered By: Rimma Perales on 01-27-2023 Thin prep Papanicolaou smear with manual screening 22 U/L 15-37 [facility] Thin prep Papanicolaou smear with manual screening 8 5-15 [facility] Absolute lymphocyte counton 01-06-2022 Lymphocytes Auto (Unsp spec) [#/Vol] 2.13 10*3/uL 0.83-4.51 [facility] Work Phone: Basophil percentageon 2021 Basophils/100 WBC (Bld) 0.9 % 0-1 [facility] Work Phone: Bilirubin [Mass/Vol] 0.40 mg/dL 0.20-1.[address] [facility] Work Phone: [phone] Comment on above: For patients on eltr ombopag therapy, use of Dimension Mathias TBIL is not recommended. Chloride [Moles/Vol] 108 mmol/L 98-[address] [facility] Work Phone: Cholesterol [Mass/Vol] 210 mg/dL <200 [facility] Work Phone: Comment on above: <200 mg/dL Desirable 200-240 mg/dL Borderline >240 mg/dL High Risk Eosinophils/100 WBC (Bld) 2.6 % 0-5 [facility] Work Phone: Glucose [Mass/Vol] 89 mg/dL 74-106 [facility] Work Phone: Neutrophils (Bld) [#/Vol] 2.5 10*3/uL 2.0-7.7 [facility] Work Phone: Neutrophils/100 WBC (Bld) 46.1 % 47-70 [facility] Work Phone: Potassium [Moles/Vol] 3.8 mmol/L 3.5-5.1 [facility] Work Phone: Protein [Mass/Vol] 7.7 g/dL 6.4-8.2 [facility] Work Phone: Sodium [Moles/Vol] 141 mmol/L 136-145 [facility] Work Phone: Triglyceride [Mass/Vol] 94 mg/dL <199 [facility] Work Phone: Comment on above: The drugs N-Acetylcy steine and Metamizole may falsely depress this assay.Serum Triglycerides Reference Interval Normal <150 mg/dL Borderline high 150 - 199 mg/dL High 200 - 499 mg/dL Very High > or = 500 mg/dL WBC (Bld) [#/Vol] 5.4 10*3/uL 4.4-11.0 [facility] Work Phone: Blood erythrocytes count (nu mber/volume)on 01-06-2022 RBC (Bld) [#/Vol] 4.48 10*6/uL 4.2-5.4 [facility] Work Phone: Blood hemoglobin measurement (mass/volume)on 01-06-2022 Hemoglobin (Bld) [Mass/Vol] 14.0 g/dL 12.0-15.0 [facility] Work Phone: Blood lymphocytes/100 leukoc yteson 01-06-2022 Lymphocytes/100 WBC (Bld) 39.3 % 19-41 [facility] Work Phone: Blood monocytes/100 leukocyt eson 01-06-2022 Monocytes/100 WBC (Bld) 10.7 % 0-10 [facility] Work Phone: Blood platelet mean volumeon 01-06-2022 Platelet mean volume (Bld) [Entitic vol] 10.7 fL 6.2-12.0 [facility] Work Phone: Determination of erythrocyte mean corpuscular volume (MCV)on 01-06-2022 MCV (RBC) [Entitic vol] 94.6 fL 81-99 [facility] Work Phone: Hematocrit Auto (Bld) [Volum e fraction]on 01-06-2022 Hematocrit (Bld) [Volume fraction] 42.4 % 37-47 [facility] Work Phone: Laboratory - Chemistry and C hemistry - challengeon 01-06-2022 ALP [Catalytic activity/Vol] 101 U/L 45-117 [facility] Work Phone: ALT [Catalytic activity/Vol] 25 U/L 13-56 [facility] Work Phone: CO2 [Moles/Vol] 27.0 mmol/L 21.0-32.0 [facility] Work Phone: Cobalamin (Vitamin B12) [Mass/Vol] 796 pg/mL 211-911 [facility] Work Phone: Globulin (S) [Mass/Vol] 4.0 g/dL 2.2-4.2 [facility] Work Phone: Urea nitrogen/Creatinine [Mass ratio] 19.9 mg/mg 10-20 [facility] Work Phone: Laboratory - Hematology and Cell countson 01-06-2022 Erythrocyte distribution width (RBC) [Entitic vol] 42.7 fL 35.1-43.9 [facility] Work Phone: Erythrocyte distribution width (RBC) [Ratio] 12.3 % 11.6-14.6 [facility] Work Phone: Immature granulocytes/100 WBC (Bld) 0.400 % 0.0-0.9 [facility] Work Phone: Comment on above: IG% - Immature Granu locytes (promyelocytes, myelocytes and metamyelocytes) > 1% indicates that a LEFT SHIFT is Present. MCH (RBC) [Entitic mass] 31.3 pg 27.0-32.0 [facility] Work Phone: Nucleated RBC/100 WBC (Bld) [Ratio] 0 % 0-5 [facility] Work Phone: MCHC Auto (RBC) [Mass/Vol]on 01-06-2022 MCHC (RBC) [Mass/Vol] 33.0 g/dL 32-36 [facility] Work Phone: No Panel Informationon 01-06 Estimated GFR (MDRD) Amer 99 mL/min >60 [facility] Work Phone: Comment on above: GFR Calc Estimated GFR (MDRD) Non-Af Amer 82 mL/min >60 [facility] Work Phone: Comment on above: Non- GFR Calc Thyroid Stimulating Hormone (TSH) 1.72 uIU/mL 0.358-3.74 [facility] Work Phone: Vitamin D 25-Hydroxy 52.8 ng/mL [facility] Work Phone: Comment on above: Vitamin D 25(OH) Sta tus Range Deficiency <20 ng/mL (50nmol/L) Insufficiency 20 - 30 ng/mL (50 - 75 nmol/L) Sufficiency 30 - 100 ng/mL (75 - 250 nmol/L) Toxicity >100 ng/mL (>250 nmol/L) Platelets bldon 01-06-2022 Platelets (Bld) [#/Vol] 229 10*3/uL 150-450 [facility] Work Phone: Serum or plasma albumin lucas urement (mass/volume)on 01-06-2022 Albumin [Mass/Vol] 3.7 g/dL 3.2-5.0 [facility] Work Phone: Serum or plasma albumin/glob ulin mass ratioon 01-06-2022 Albumin/Globulin [Mass ratio] 0.9 {ratio} 0.9-2.4 [facility] Work Phone: Serum or plasma calcium lucas urement (mass/volume)on 01-06-2022 Calcium [Mass/Vol] 8.8 mg/dL 8.5-10.1 [facility] Work Phone: Serum or plasma cholesterol in HDL measurement (mass/volume)on 01-06-2022 Cholesterol in HDL [Mass/Vol] 51 mg/dL >40 [facility] Work Phone: Comment on above: The drugs N-Acetylcy steine and Metamizole may falsely depress this assay. Reference Range HDL <40 mg/dL Low HDL Cholesterol HDL >or= 60 mg/dL High HDL Cholesterol Serum or plasma cholesterol in VLDL measurement (mass/volume)on 01-06-2022 Cholesterol in VLDL [Mass/Vol] 19 mg/dL 5-40 [facility] Work Phone: Serum or plasma creatinine m easurement (mass/volume)on 01-06-2022 Creatinine [Mass/Vol] 0.75 mg/dL 0.55-1.02 [facility] Work Phone: Comment on above: The validity of the calculated GFR & GFRAA in patients over 70 years has not been determined. Clinical correlation is essential. Serum or plasma low density lipoprotein (LDL) cholesterol measurement (mass/volume)on 01-06-2022 Cholesterol in LDL [Mass/Vol] 140 mg/dL 0-130 [facility] Work Phone: Serum or plasma urea nitroge n measurement (mass/volume)on 01-06-2022 Urea nitrogen [Mass/Vol] 15 mg/dL 7-18 [facility] Work Phone: Thin prep Papanicolaou smear with manual screeningon 01-06-2022 Thin prep Papanicolaou smear with manual screening 19 U/L 15-37 [facility] Work Phone: Thin prep Papanicolaou smear with manual screening 6 5-15 [facility] Work Phone: CBC W/DIFFon 10-08-2018 BASO ABS 0.10 K/CU MM Normal 0-0.2 [facility] Comment on above: Performed By: #### L [id number] #### [facility] [address] [place] [address] Basophils/100 WBC (Bld) 0.9 % Normal 0-2 [facility] Comment on above: Performed By: #### L [id number] #### [facility] [address] [place] [address] EOS ABS 0.10 K/CU MM Normal 0-0.5 [facility] Comment on above: Performed By: #### L 200.56755 #### [facility] [address] [place] [address] Eosinophils/100 WBC (Bld) 2.3 % Normal 0-5 [facility] Comment on above: Performed By: #### L 200.44672 #### [facility] [address] [place] [address] Erythrocyte distribution width (RBC) [Ratio] 12.6 % Normal 11-14.5 [facility] Comment on above: Performed By: #### L [id number] #### [facility] [address] [place] [address] Hematocrit (Bld) [Volume fraction] 44.0 % Normal 35.0-47.0 [facility] Comment on above: Performed By: #### L 200.83807 #### [facility] [address] [place] [address] Hemoglobin (Bld) [Mass/Vol] 14.1 g/dL Normal 11.5-15.5 [facility] Comment on above: Performed By: #### L 200.24828 #### [facility] [address] [place] [address] IMMATR GRAN ABS 0.00 K/CU MM Normal Less than 2 [facility] Comment on above: Performed By: #### L 200.33120 #### [facility] [address] [place] [address] IMMATURE GRAN % 0.2 % Normal Less than 2 [facility] Comment on above: Performed By: #### L 200.02133 #### [facility] [address] [place] [address] Lymphocytes (Bld) [#/Vol] 2.00 K/CU MM Normal 0.9-4.4 [facility] Comment on above: Performed By: #### L 200.40498 #### [facility] [address] [place] [address] Lymphocytes/100 WBC (Bld) 35.3 % Normal 20-40 [facility] Comment on above: Performed By: #### L 200.70026 #### [facility] [address] [place] [address] MCHC (RBC) [Mass/Vol] 32.0 g/dL Normal 32.0-36.0 [facility] Comment on above: Performed By: #### L 200.00627 #### [facility] [address] [place] [address] MCV (RBC) [Entitic vol] 93.8 fL Normal 80.0-99.0 [facility] Comment on above: Performed By: #### L 200.33205 #### [facility] [address] [place] [address] MONO ABS 0.50 K/CU MM Normal 0.1-1.1 [facility] Comment on above: Performed By: #### L 200.07897 #### [facility] [address] [place] [address] Monocytes/100 WBC (Bld) 8.0 % Normal 2-10 [facility] Comment on above: Performed By: #### L 200.87723 #### [facility] [address] [place] [address] NEUTROPHIL ABS 3.10 K/CU MM Normal 2.0-8.3 [facility] Comment on above: Performed By: #### L 200.34188 #### [facility] [address] [place] [address] Neutrophils/100 WBC (Bld) 53.3 % Normal 45-75 [facility] Comment on above: Performed By: #### L 200.76394 #### [facility] [address] [place] [address] Nucleated RBC/100 WBC (Bld) [Ratio] 0.0 % Normal Less than 1 [facility] Comment on above: Performed By: #### L 200.18998 #### [facility] [address] [place] [address] Platelet mean volume (Bld) [Entitic vol] 10.5 fL Normal 9.4-12.4 [facility] Comment on above: Performed By: #### L 200.87070 #### [facility] [address] [place] [address] Platelets (Bld) [#/Vol] 213 K/CU MM Normal 150-450 [facility] Comment on above: Performed By: #### L 200.84240 #### [facility] [address] [place] [address] RBC (Bld) [#/Vol] 4.69 M/CU MM Normal 3.90-5.30 [facility] Comment on above: Performed By: #### L 200.88808 #### [facility] [address] [place] [address] WBC (Bld) [#/Vol] 5.7 K/CUMM Normal 4.5-11.0 [facility] Comment on above: Performed By: #### L 200.05218 #### [facility] [address] [place] [address] CMPon 10-08-2018 Albumin [Mass/Vol] 4.0 g/dL Normal 3.2-5.0 [facility] Comment on above: Performed By: #### L 500.96393, L500.98963, L500.19632 #### [facility] [address] [place] [address] Albumin/Globulin [Mass ratio] 1.2 {ratio} Normal 0.8-2.0 [facility] Comment on above: Performed By: #### L 500.91964, L500.94329, L500.91164 #### [facility] [address] [place] [address] ALK PHOS 108 U/L Normal 45-117 [facility] Comment on above: Performed By: #### L 500.77015, L500.71870, L500.43148 #### [facility] [address] [place] [address] ALT [Catalytic activity/Vol] 24 U/L Normal 13-61 [facility] Comment on above: Result Comment: RESU LTS MAY BE FALSELY DEPRESSED AFTER THE ADMINISTRATION OF SULFASALAZINE AND/OR SULFAPYRIDINE. Performed By: #### L 500.46454, L500.62133, L500.89192 #### [facility] [address] [place] [address] Anion gap [Moles/Vol] 7 mmol/L Normal 5-16 [facility] Comment on above: Performed By: #### L 500.40160, L500.53300, L500.97571 #### [facility] [address] [place], [place] [id number] BILI TOTAL 0.5 MG/DL Normal 0.2-1.0 [facility] Comment on above: Performed By: #### L 500.42661, L500.89170, L500.49694 #### [facility] [address] [place] [address] Calcium [Mass/Vol] 8.5 mg/dL Normal 8.5-10.1 [facility] Comment on above: Performed By: #### L 500.46737, L500.77328, L500.82732 #### [facility] [address] [place] [address] Chloride [Moles/Vol] 109 mmol/L High 98-107 [facility] Comment on above: Performed By: #### L 500.55280, L500.60330, L500.45858 #### [facility] [address] [place] [address] CO2 [Moles/Vol] 25 mmol/L Normal 21-32 [facility] Comment on above: Performed By: #### L 500.10216, L500.77581, L500.53569 #### [facility] [address] [place] [address] Creatinine [Mass/Vol] 0.788 mg/dL Normal 0.510-0.950 [facility] Comment on above: Result Comment: Linette ents receiving either N-Acetylcysteine (NAC) or Metamizole prior to venipuncture, may have falsely depressed results. Performed By: #### L 500.44849, L500.14905, L500.33467 #### [facility] [address] [place] [address] Globulin (S) [Mass/Vol] 3.4 g/dL Normal 2.2-4.2 [facility] Comment on above: Performed By: #### L 500.45293, L500.57710, L500.52105 #### [facility] [address] [place] [address] Glucose [Mass/Vol] 96 mg/dL Normal 70-100 [facility] Comment on above: Result Comment: 70-1 00- Normal Fasting; 100-125 Impaired Fasting; greater than 126 on more than one result- Diabetes. ADA guidelines. Results may be falsely elevated after the administration of Sulfapyridine. Results may be falsely depressed after the administration of Sulfasalazine. Performed By: #### L 500.57459, L500.42758, L500.14824 #### [facility] [address] [place] [address]377 Potassium [Moles/Vol] 4.0 mmol/L Normal 3.5-5.1 [facility] Comment on above: Performed By: #### L 500.46552, L500.08378, L500.95503 #### [facility] [address] [place] [address] Protein [Mass/Vol] 7.4 g/dL Normal 6.0-8.5 [facility] Comment on above: Performed By: #### L 500.20068, L500.87392, L500.66836 #### [facility] [address] [place] [address] SGOT (AST) 18 U/L Normal 8-34 [facility] Comment on above: Result Comment: RESU LTS MAY BE FALSELY DEPRESSED AFTER THE ADMINISTRATION OF SULFASALAZINE AND/OR SULFAPYRIDINE. Performed By: #### L 500.30839, L500.04362, L500.56314 #### [facility] [address] [place] [address] Sodium [Moles/Vol] 141 mmol/L Normal 136-145 [facility] Comment on above: Performed By: #### L 500.41458, L500.88687, L500.30701 #### [facility] [address] [place] [address] Urea nitrogen [Mass/Vol] 8 mg/dL Normal 7-26 [facility] Comment on above: Performed By: #### L 500.99626, L500.06071, L500.37504 #### [facility] [address] [place] [address] Urea nitrogen/Creatinine [Mass ratio] 10 mg/mg Low 15-24 [facility] Comment on above: Performed By: #### L 500.92221, L500.61158, L500.89984 #### [facility] [address] [place] [address] GFR ESTon 10-08-2018 IF AMER Greater than [address] [facility] Comment on above: Performed By: #### L 500.13930, L500.69738, L500.01212 #### [facility] [address] [place] [address] IF non-AFR AMER Greater than [address] [facility] Comment on above: Performed By: #### L 500.30967, L500.78939, L500.13500 #### [facility] [address] [place], [place] [id number] LIPIDon 10-08-2018 Cholesterol [Mass/Vol] 214 mg/dL High 0-199 [facility] Comment on above: Performed By: #### L 500.35786, L500.79261, L500.59734 #### [facility] [address] [place], [place] [address] Cholesterol in HDL [Mass/Vol] 54 mg/dL Normal GREATER [place] 40 [facility] Comment on above: Result Comment: Linette ents receiving Metamizole prior to venipuncture, may have falsely depressed results. Performed By: #### L 500.43603, L500.67931, L500.08131 #### [facility] [address] [place] [address] Cholesterol in LDL [Mass/Vol] 148 mg/dL High 0-129 [facility] Comment on above: Result Comment: ___C HOLESTEROL/HDL RATIO RISK___ CHD RISK = Total CHOL LDL HDL (CHOL/HDL) Recommended <200 <130 >40 <3.4 Borderline 200-239 130-159 3.4-4.99 High >240 >160 >5.0 Performed By: #### L 500.28398, L500.38728, L500.93093 #### [facility] [place] [address] Triglyceride [Mass/Vol] 61 mg/dL Normal 30-149 [facility] Comment on above: Result Comment: Linette ents receiving either N-Acetylcysteine (NAC) or Metamizole prior to venipuncture, may have falsely depressed results. Performed By: #### L 500.00688, L500.72529, L500.83462 #### [facility] [place] [address] UA COMPLETEon 10-08-2018 UA LK ESTERASE 25 Normal NEGATIVE [facility] Comment on above: Performed By: #### L 600.59832 #### [facility] [address] [place] [address] Color (U) Straw Normal [facility] Comment on above: Performed By: #### L 600.42312 #### [facility] [address] [place], [place] [address] Glucose (U) [Mass/Vol] Negative Normal NORMAL [facility] Comment on above: Performed By: #### L 600.16593 #### [facility] [address] [place] [address] Mucus Ql (Urine sed) TRACE Normal NEGATIVE [facility] Comment on above: Performed By: #### L 600.53111 #### [facility] [address] [place] [address] SQUAMOUS EPIS 4 EPI/HPF Normal 0-5 [facility] Comment on above: Performed By: #### L 600.86736 #### [facility] [address] [place] [address] UA APPEARANCE Clear Normal CLEAR [facility] Comment on above: Performed By: #### L 600.29089 #### [facility] [address] [place], [place] [address] UA BACTERIA NONE Normal NONE [facility] Comment on above: Performed By: #### L 600.26048 #### [facility] [address] [place], [place] [address] UA BILIRUBIN Negative Normal NEGATIVE [facility] Comment on above: Performed By: #### L 600.33236 #### [facility] [address] [place], [place] [address] UA BLOOD MOD Normal NEGATIVE [facility] Comment on above: Performed By: #### L 600.25599 #### [facility] [address] [place], [place] [address] UA KETONE Negative Normal NEGATIVE [facility] Comment on above: Performed By: #### L 600.44122 #### [facility] [address] [place] [address] UA NITRITE Negative Normal NEGATIVE [facility] Comment on above: Performed By: #### L 600.92148 #### [facility] [address] [place] [address] UA PH 7.0 Normal 5-6 [facility] Comment on above: Performed By: #### L 600.65244 #### [facility] [address] [place] [address] UA PROTEIN Negative Normal NEGATIVE [facility] Comment on above: Performed By: #### L 600.20903 #### [facility] [address] [place] [address] UA RBC 7 RBC/HPF High 0-3 [facility] Comment on above: Performed By: #### L 600.26882 #### [facility] [address] [place] [address] UA SPEC GRAV 1.009 Normal 1.005-1.030 [facility] Comment on above: Performed By: #### L 600.32271 #### [facility] [place] [address] UA UROBILINOGEN Negative Normal NORMAL [facility] Comment on above: Performed By: #### L 600.42558 #### [facility] [place] [address] UA WBC 2 WBC/HPF Normal 0-5 [facility] Comment on above: Performed By: #### L 600.48980 #### [facility] [place] [address] Vital Signs Date Time Vital Sign Value Performing Clinician Aiyana liu 01-12-2023 09:25-0400 Body height 162.[address] Rimma Perales Work Phone: [facility] 01-12-2023 09:25-0400 Body mass index (BMI) [Ratio] 25 kg/m2 Dr. Rimma Perales Work Phone: [facility] 01-12-2023 09:25-0400 Body temperature 97.6 [degF] Dr. Rimma Preales Work Phone: [facility] 01-12-2023 09:25-0400 Body weight 66.[address] Rimma Perales Work Phone: [facility] 01-12-2023 09:25-0400 Diastolic blood pressure 81 mm[Hg] Dr. Rimma Perales Work Phone: [facility] 01-12-2023 09:25-0400 Heart rate 81 /min Dr. Rimma Perales Work Phone: [facility] 01-12-2023 09:25-0400 Respiratory rate 16 /min Dr. Rimma Perales Work Phone: [facility] 01-12-2023 09:25-0400 SaO2% (BldA) [Mass fraction] 97 % Dr. Rimma Perales Work Phone: [facility] 01-12-2023 09:25-0400 Systolic blood pressure 155 mm[Hg] Dr. Rimma Perales Work Phone: [facility] 01-03-2022 14:25-0400 Body temperature 98.3 [degF] Dr. Rimma Perales Work Phone: [facility] Work Phone: 01-03-2022 14:25-0400 Body weight 65.[address] Rimma Perales Work Phone: [facility] Work Phone: 01-03-2022 14:25-0400 Diastolic blood pressure 94 mm[Hg] Dr. Rimma Perales Work Phone: [facility] Work Phone: 01-03-2022 14:25-0400 Heart rate 95 /min Dr. Rimma Perales Work Phone: [facility] Work Phone: 01-03-2022 14:25-0400 Respiratory rate 16 /min Dr. Rimma Perales Work Phone: [facility] Work Phone: 01-03-2022 14:25-0400 SaO2% (BldA) [Mass fraction] 96 % Dr. Rimma Perales Work Phone: [facility] Work Phone: 01-03-2022 14:25-0400 Systolic blood pressure 152 mm[Hg] Dr. Rimma Perales Work Phone: [facility] Work Phone: Encounters Encounter Date Encounter Type Care Provider Facility Start: [facility] Start: 02-03-2025 End: 02-03-2025 ambulatory [facility] Facility:[facility] Start: 08-21-2024 End: 08-21-[address] Rimma Perales MD Work Phone: [facility] Work Phone: Start: 08-21-2024 End: 08-21-[address] Vladislav Guzman MD -[facility] [place] Work Phone: Start: 08-21-2024 End: 08-21-2024 ambulatory Rimma Perales Facility:[facility] Start: 03-26-2024 End: 03-26-2024 Telephone encounter Kapil Montelongo Clinical Communication Comment on above: Other (Mammogram rem moisés call) Start: 01-27-2023 End: 01-27-[address] Rimma Perales Work Phone: [facility] Work Phone: Start: 01-27-2023 End: 01-27-[address] Rimma Perales Work Phone: [facility] Work Phone: Start: 01-12-2023 End: 01-12-2023 Encounter for general adult medical examination without abnormal findings Dr. Rimma Perales Work Phone: [facility] Start: 01-12-2023 End: 01-12-[address] Rimma Perales Work Phone: [facility] [place] Work Phone: Start: 01-06-2022 End: 01-06-[address] Rimma Perales Work Phone: [facility] Work Phone: Start: 01-06-2022 End: 01-06-[address] Rimma Perales Work Phone: [facility] Start: 01-03-[address] Rimma Perales Work Phone: [facility] Start: 01-03-2022 End: 01-03-2022 Encounter for general adult medical examination without abnormal findings Dr. Rimma Perales Work Phone: [facility] [place] Start: 01-03-2022 End: 01-03-[address] Rimma Perales Work Phone: [facility] [place] Procedures Date Procedure Procedure Detail Performing Clinician Start: 08-21-2024 Plain x-ray of hand Dr. Rimma Perales MD Work Phone: Payers Date Payer Category Payer Medicare [id number] 2024 Self-pay [id number] Private Health Insurance [facility] [id number] Unknown [id number] Unknown [id number] Unknown [id number] Unknown [id number] Social History Date Type Detail Facility Tobacco smoking status NHIS Unknown if ever smoked [facility] Work Phone: Start: 1955 Sex Assigned At Female [facility] Tobacco smoking status HIIS Tobacco smoking consumption unknown [facility] Start: 1955 Sex assigned at Not on file [facility] Start: 11-01-2021 Sex Female (finding) [facility] Gender identity Not on file [facility] Start: 01-25-2024 Tobacco smoking status NHIS Never smoked tobacco (finding) [facility] Radiology Diagnostic study note 08-22-2024 Note Date & Type Note Facility 08-22-2024 Radiology Diagnostic study note [facility] [address] [place] [address] Hand Min 3 Views MR#: [id number] Acct: [id number] Name: TERELL GREEN JEB Rep #: [id number] : 1955 F 69 From: [facility] MD PCP: Dr. Rimma Perales MD Status: REG CLI Study:Hand Min 3 Views Date of Exam: Exam# [id number] Ordering Dr: Gerardo Guzman MD PROCEDURE: HAND [...] 5th proximal interphalangeal joint,clinically correlate. Reading Location: [id number] CC: Dr. Rimma Perales MD; Dr. Vladislav Guzman MD ~ Director Of Oncology: Signed [facility] Telephone encounter Note 03-26-2024 Telephone Encounter - Kapil Vasquez LPN - 03/26/2024 9:48 AM EST Note Date & Type Note Facility 03-26-2024 Telephone encounter Note Form atting of this note might be different from the original. Mammogram reminder call [facility] 03-26-2024 Telephone Encounter - Kapil Vasquez LPN - 03/26/2024 9:48 AM EST Note Date & Type Note Facility 03-26-2024 Miscellaneous Notes Formattin g of this note might be different from the original. Mammogram reminder call LVM documented in this encounter [facility] Evaluation note Note Date & Type Note Facility Evaluation note Diagnosis Onset Date Encounter for wellness examination in adult acute Fatigue acute Tingling of upper extremity acute [facility] Work Phone: Evaluation note Note Date & Type Note Facility Evaluation note Diagnosis Onset Date Encounter for wellness examination in adult acute Fatigue acute Chronic GERD chronic [facility] Work Phone: Evaluation note Note Date & Type Note Facility Evaluation note No assessment information availa ble [facility] Work Phone: Reason for referral (narrative) Note Date & Type Note Facility Reason for referral (narrative) No reason for referral information available [facility] Work Phone: Summary Purpose Family History No [...] section and content) DATE CREATED AUTHOR 10/13/2018 [facility] [place] DATE CREATED AUTHOR AUTHOR'S ORGANIZ ATION 03/28/2024 [facility] DATE CREATED AUTHOR AUTHOR'S ORGANIZ ATION 02/07/2025 [facility] Goals (unrecognized section and content) Goals may [...] BE BASED ON THE PRIMARY CLINICAL RECORDS. [employer] provides no warranty or guarantee of the accuracy or completeness of information in this document.
--- NOTE | 2025-03-31 18:28 | STRESSREP_ITS ---
Stress Test Report Exercise myocardial perfusion stress test. Date Test Performed: 03/31/2025 [69]-year-old [female] with a history of [chest pain]. Stress protocol: Resting EKG demonstrates [normal sinus] rhythm with a rate of [67] bpm resting blood pressure is [122/86] mmHg. There is no evidence of active ischemia or prior infarction on resting EKG. The patient exercised according to the regular Timbo protocol for a total duration of [6 minutes 30 seconds] attaining a maximum heart rate of [151] bpm which was [100%]% of maximum predicted heart rate; the maximum workload was [8.5] metabolic equivalents. At rest there were no ST or T wave changes noted to suggest ischemia and at peak exercise upsloping ST changes only were noted which did not meet the criteria for ischemia. No clinical angina was noted the test was terminated due to the target heart rate being achieved/fatigue. The peak blood pressure was [174/90] mmHg. Rate- pressure product was [62419]. Myocardial perfusion protocol. [11.4] mCi of technetium 99m sestamibi was injected at rest. The patient exercised according to regular Timbo protocol for total duration of [6 minutes and 30 seconds] and at peak exercise [36] mCi of technetium 99m sestamibi was injected stress images were obtained stress and rest images were reconstructed in comparing the short axis vertical long and horizontal long axis. Gated images were also obtained. Perfusion SPECT analysis: Review of the stress images demonstrate normal uptake of tracer noted in all areas of the myocardium. The resting images similarly demonstrate normal uptake of tracer noted in all areas of the myocardium. No areas of reversibility are noted to suggest ischemia no previous infarct was noted. Gated SPECT analysis: The gated ejection fraction is greater than [70]%. Wall motion is concordant. Conclusion: There is no evidence of myocardial ischemia on this exercise myocardial perfusion stress test.
== END | disposition home or self-care (01) ==
LOC: CVS 06:23
PROVIDERS: PCP Internal Medicine; Referring Provider Internal Medicine; Visit Provider Internal Medicine
DX: R07.89 Other chest pain (principal)
CPT/HCPCS: 78452; 93017; A9500; A4216